=== PATIENT | male | born 1940 | race Caucasian/White ===

== ENCOUNTER 2017-12-26 16:46 | Emergency (ER) | payer MEDICARE, OTHER ==
--- NOTE | 2017-12-26 17:55 | CT ---
CT BRAIN WITHOUT CONTRAST 12/26/17 HISTORY: Injury. Trauma. COMPARISON: 2015. FINDINGS: No acute territorial infarct or hemorrhage. No midline shift or mass effect. Ventricular size and ext ra-axial CSF spaces are normal. The calvarium is intact. The paranasal sinuses and mastoids are clear. IMPRESSION: No acute intracranial abnormality. POS: SUSAN
--- NOTE | 2017-12-26 17:57 | CT ---
CT FACE WITHOUT CONTRAST: 12/26/17 HISTORY: Injury. Facial trauma. COMPARISON: None. FINDINGS: Age indeterminate bilateral nasal bone fractures. The medial orbital davies, lateral orbital davies, or bital floors, zygoma, zygomatic arches are all intact. Normal appearance of the temporomandibular johanne nts. Pterygoid plates are intact. Mandible is intact. The anterior nasal process of the maxilla is intact. Normal alignment of the upper cervical spine. There is a soft tissue contusion over the right cheek, infraorbital. IMPRESSION: Right cheek soft tissue contusion. No underlying fracture or malalignment. POS: SUSAN
[2017-12-26 18:41] LABS: INR-International Normal Ratio 2.2; PTT 36.5 SEC (22.9-36.1); Prothrombin Time 25.5 SEC (12.0-14.7)
== END 2017-12-26 19:20 | disposition home or self-care (01) ==
LOC: ERS 16:46
DX: S00.83XA Contusion of other part of head, initial encounter (principal); I10 Essential (primary) hypertension; E78.5 Hyperlipidemia, unspecified; F41.9 Anxiety disorder, unspecified; F03.90 Unspecified dementia, unspecified severity, without behavioral disturbance, psychotic disturbance, mood disturbance, and anxiety; W19.XXXA Unspecified fall, initial encounter
CPT/HCPCS: 36415; 70450; 70486

== ENCOUNTER 2019-04-29 09:25 | Day surgery (SDC) | payer MEDICARE, OTHER ==
[2019-04-28 13:09] VITALS: BMI 33.0
--- NOTE | 2019-04-29 10:13 | RAD ---
XR Abdomen 1 View/KUB History: Preop Comparison: CT Stone protocol April 2019 Findings: Similar appearance of the calcifications projecting over the left proximal ureter and left renal collecting system. No abnormal calcifications seen projecting over the right ureter. Punctate right renal calculus not well visualized. Moderate facet arthropathy lower lumbar spine. Moderate degenerative disease of the hips. Impression: No further migration of the left ureteral calculus.
[2019-04-29] MEDS ORDERED: Levofloxacin 500 mg/D5W 100 ml Premix Bag ONE (10:59)
[2019-04-29] MEDS ORDERED: Vancomycin HCl 1.5 GM in Sodium Chloride 0.9% 250 ML 300 ML IVPB SCH (11:15)
[2019-04-29] MEDS ORDERED: cefTRIAXone\\ROCEPHIN 2 GM in Sodium Chloride 0.9% 100 ML IVPB SCH (11:15)
[2019-04-29] MEDS ORDERED: Fentanyl 100 MCG/2 ML VIAL ONE (11:27)
[2019-04-29] MEDS ORDERED: Iothalamate Meglumine 60% 50 ML VIAL FS ONE (11:32)
[2019-04-29] MEDS ORDERED: SUGAMMADEX SODIUM 500 MG/5 ML VIAL ONE (12:36)
--- NOTE | 2019-04-29 14:12 | RAD ---
EXAM: XR IVP Retrograde PROVIDED CLINICAL HISTORY: Left flank pain. Recent CT scan examination demonstrates bilateral renal calculi proximal left ureter al calculus. COMPARISON: CT abdomen and pelvis on 04/27/2019 FINDINGS/IMPRESSION: Left retrograde urogram demonstrates a subtle filling defect at the expected location of the left pro ximal ureter with subsequent images demonstrating opacification of the left renal collecting system with evidence of mild left hydronephrosis. There is a rounded filling defect in the left renal pelvis after opacification of the left renal collecting system which may potentially represent the ureteral calculus which has migrated into the renal pelvis or a gas bubble. Subsequent imaging demons trates placement of a left ureteral stent. Right retrograde urogram was performed, and no definite filling defect is seen within the right renal collecting system or right ureter. No right hydronephrosis is present. Correlation with intraoperative findings is recommended. Fluoroscopy: Time-1 minute 27 seconds Dose-39.6 mGy
--- NOTE | 2019-04-29 16:42 | OP ---
DATE OF PROCEDURE: 04/29/2019 PREOPERATIVE DIAGNOSES: Left proximal ureteral stone and right distal ureteral stone. POSTOPERATIVE DIAGNOSES: Left proximal ureteral stone and right distal ureteral stone. PROCEDURES PERFORMED: Cysto, bilateral retrogrades, and bilateral stents. ANESTHESIA: General. EBL: Minimal. FINDINGS: There was a proximal left ureteral stone that was pushed back up in the renal pelvis. There was a distal right ureteral stone. There were some tiny bladder stones. Drains placed were 4.8 x 24 cm double-J stents without any strings attached to them. DESCRIPTION OF PROCEDURE: Obtained written and verbal consent from the patient after receiving IV Levaquin and vancomycin. He was taken to the operating suite. He was placed in supine position on the treatment table. PlexiPulses were placed in his lower extremities and turned on. He was given a general anesthetic and oral obturator intubation. He was placed in the dorsal lithotomy position and sterilely prepped and draped. Cystoscopy was performed with a 22-[place] sheath. This was well lubricated and passed under direct vision through the male urethra into the urinary bladder with aid of a video camera, monitor, and a 30-degree lens. The bladder was examined with the 30 and 70-degree lens. There were some tiny bladder stones. The left ureteral orifice was cannulated with a 5-[place] Pollack catheter. Using the C-arm, images were taken as we filled up the left ureter and upper collecting system with contrast. There was a proximal ureteral stone that we were able to push back up into the renal pelvis. A guidewire was then set up across this point and then a stent was placed over the guidewire and pushed it up and then placed with aid of a pusher, so its proximal end coiled in the renal pelvis and its distal end coiled in the bladder when the wires removed. The right side was then done in a similar manner. There was a very small most likely very small right distal ureteral stone that was easily passed through the guidewire and we did place a stent up on this side also same technique. At this point, the bladder was drained. The instruments were removed. He was taken out of dorsal lithotomy position, awakened, extubated, and taken by stretcher to recovery room. Job ID: [id number]
== END 2019-04-29 15:21 | disposition home or self-care (01) ==
LOC: SDC 09:25
PROVIDERS: ATTEND Urology
PROC: 0T788DZ Dilation of Bilateral Ureters with Intraluminal Device, Via Natural or Artificial Opening Endoscopic (ICD-10-PCS; principal; 2019-04-29)
DX: N20.1 Calculus of ureter (principal); N21.0 Calculus in bladder; G47.33 Obstructive sleep apnea (adult) (pediatric); I48.91 Unspecified atrial fibrillation; K21.9 Gastro-esophageal reflux disease without esophagitis; M19.90 Unspecified osteoarthritis, unspecified site; F32.9 Major depressive disorder, single episode, unspecified; I10 Essential (primary) hypertension; Z86.718 Personal history of other venous thrombosis and embolism; Z87.891 Personal history of nicotine dependence; Z79.899 Other long term (current) drug therapy; Z88.1 Allergy status to other antibiotic agents; Z88.5 Allergy status to narcotic agent; Z88.8 Allergy status to other drugs, medicaments and biological substances; Z99.89 Dependence on other enabling machines and devices
CPT/HCPCS: 52332; 74018; 74420; C1758; J1956; J3010; J3370; J7050

== ENCOUNTER 2019-05-05 06:51 | Outpatient (CLI) | payer MEDICARE, OTHER ==
[2019-05-05 14:43] LABS: Platelet Count 244 thou/uL (130-400)
[2019-05-05 15:07] LABS: INR-International Normal Ratio 1.1; Prothrombin Time 14.7 SEC (12.0-14.7)
[2019-05-05 15:08] LABS: PTT 31.6 SEC (22.9-36.1)
[2019-05-05 15:09] LABS: EPI 101 SEC (67-199)
--- NOTE | 2019-05-10 17:05 | EKG ---
Test Reason : Blood Pressure : / mmHG Vent. Rate : 070 BPM Atrial Rate : 070 BPM P-R Int : 172 ms QRS Dur : 108 ms QT Int : 452 ms P-R-T Axes : 069 -37 056 degrees QTc Int : 488 ms Normal sinus rhythm Left axis deviation Incomplete right bundle branch block Nonspecific T wave abnormality Prolonged QT Abnormal ECG When compared with ECG of 06-JAN-2016 01:54, Sinus rhythm has replaced Atrial fibrillation Vent. rate has decreased BY 35 BPM Incomplete right bundle branch block is now Present Criteria for Inferior infarct are no longer Present Confirmed by DAYANARA ALVARENGA (2) on 05/10/2019 5:05:18 PM Referred By: JESSE Confirmed By:DAYANARA ALVARENGA
== END 2019-05-05 06:52 | disposition home or self-care (01) ==
LOC: LABBT 06:51
PROVIDERS: ATTEND Urology
DX: Z01.818 Encounter for other preprocedural examination (principal); N20.1 Calculus of ureter
CPT/HCPCS: 85576; 85610; 85730; 93005; 93010

== ENCOUNTER 2019-05-06 06:38 | Day surgery (SDC) | payer MEDICARE, OTHER ==
[2019-05-05 13:16] VITALS: BMI 32.8
[2019-05-06] MEDS ORDERED: Fentanyl 100 MCG/2 ML VIAL ONE (07:17)
[2019-05-06] MEDS ORDERED: Iothalamate Meglumine 60% 50 ML VIAL FS ONE (09:01)
--- NOTE | 2019-05-06 12:25 | OP ---
DATE OF PROCEDURE: 05/06/2019 PREOPERATIVE DIAGNOSES: Left renal stone and right ureteral stone. POSTOPERATIVE DIAGNOSES: Left renal stone and right ureteral stone. PROCEDURES PERFORMED: Left extracorporeal shock wave lithotripsy and right extracorporeal shock wave lithotripsy. ANESTHETIC: General. ESTIMATED BLOOD LOSS: Not recorded. FINDINGS: He had a stone that was about a centimeter in size, it had been in the left proximal ureter. This had been placed up into the left renal pelvis when the stent was placed. This was treated with 2500 shocks at maximum level kV of 4 with a few 100 shocks at a kV 5. It did appear to fragment well, but we did not remove the stent. It was a much smaller stone, probably in the 3 or 4 mm range along the right distal stent, this was treated with a 1000 shocks at maximum kV level of 5. DESCRIPTION OF PROCEDURE: Obtained written and verbal consent from the patient, after documenting normal preop blood work, he was taken to operating suite. He was placed in the supine position on the treatment table. PlexiPulses were placed on his lower extremities and turned on. He was given a general anesthetic and an oral obturator intubation. The stone was placed in treatment focal point. He was coupled to the lithotripsy unit. This was a left renal stone that we treated first. ESWL was commenced at a low kV and a low rate. After couple 100 shocks, a 5-minute pause was given and then, we restarted the ESWL. So, we went up to level 4 and then the last 1000 shocks, he alternated between level 4 and level 5. After 2500 shocks, we went ahead and repositioned on the right side to treat the right distal ureteral stone. This was also coupled to the lithotripsy unit and shockwave therapy was commenced. It went up relatively quickly to level 5. No pause was given for this 1 and did appear to fragment well, so it stopped at a 1000 shocks. At this point, he was awakened, extubated, and taken by stretcher to the recovery room. Job ID: [id number]
== END 2019-05-06 14:02 | disposition home or self-care (01) ==
LOC: SDC 06:38
PROVIDERS: ATTEND Urology
PROC: 0TF4XZZ Fragmentation in Left Kidney Pelvis, External Approach (ICD-10-PCS; principal; 2019-05-06)
PROC: 0TF6XZZ Fragmentation in Right Ureter, External Approach (ICD-10-PCS; 2019-05-06)
DX: N20.2 Calculus of kidney with calculus of ureter (principal); G47.33 Obstructive sleep apnea (adult) (pediatric); I48.91 Unspecified atrial fibrillation; K21.9 Gastro-esophageal reflux disease without esophagitis; M19.90 Unspecified osteoarthritis, unspecified site; F32.9 Major depressive disorder, single episode, unspecified; N40.1 Benign prostatic hyperplasia with lower urinary tract symptoms; Z86.718 Personal history of other venous thrombosis and embolism; Z87.891 Personal history of nicotine dependence; Z79.01 Long term (current) use of anticoagulants; Z79.899 Other long term (current) drug therapy; Z88.1 Allergy status to other antibiotic agents; Z88.5 Allergy status to narcotic agent; Z88.8 Allergy status to other drugs, medicaments and biological substances; Z99.89 Dependence on other enabling machines and devices
CPT/HCPCS: J3010

== ENCOUNTER 2019-08-05 09:04 | Inpatient (IN) | payer MEDICARE, OTHER ==
--- NOTE | 2019-08-05 09:32 | RAD ---
XR Chest 1 View Portable HISTORY: Tachycardia and altered mental status. COMPARISON: 06/06/2019 study. FINDINGS: Heart size is enlarged with postop sternotomy change and aortic valve replacement. A loop r ecorder device is present over the left chest. The lungs are clear of infiltrates. No signs of failure. IMPRESSION: Cardiomegaly. No acute findings.
[2019-08-05 09:57] LABS: ALT (SGPT) 21 U/L (8-55); AST (SGOT) 15 U/L (5-34); Albumin 3.8 g/dL (3.4-4.8); Alkaline Phosphatase 84 U/L (40-110); Anion Gap 16 mmol/L (10-20); BUN (Urea Nitrogen) 23 mg/dL (8.4-25.7); Bilirubin, Total 0.9 mg/dL (0.2-1.2); CK (CPK) 30 U/L (30-200); Calc. Creatinine Clearance 0 mL/min (70-130); Calcium 8.7 mg/dL (7.8-10.44); Carbon Dioxide 20 mmol/L (23-31); Chloride 107 mmol/L (98-107); Estimated GFR-MDRD 66; Globulin 3.2 g/dL (2.4-3.5); Glucose 168 mg/dL (83-110); Lipase 13 U/L (8-78); Potassium 4.2 mmol/L (3.5-5.1); Sodium 139 mmol/L (136-145)
[2019-08-05 10:00] LABS: Bilirubin Negative (Negative); Blood, Urine Negative (Negative); Clarity Clear (Clear); Glucose, Urine (Dipstick) Normal (Negative); Leukocyte Negative Leu/uL (Negative); Nitrite Negative (Negative); Protein, Urine (Dipstick) Negative (Neg-Trace); Urobilinogen Normal mg/dL (Less than 2)
[2019-08-05 10:05] LABS: Hemoglobin 12.7 g/dL (14.0-18.0); Mean Corpuscular HGB CONC 32.7 g/dL (32.0-36.0); Mean Corpuscular Volume 91.8 fL (78.0-98.0); Mean Platelet Volume 8.1 fL (7.4-10.4); Platelet Count 170 thou/uL (130-400); RBC Distribution Width 16.7 % (11.5-14.5); Red Blood Cell (RBC) Count 4.23 mill/uL (4.70-6.10); White Blood Cell (WBC) Count 28.8 thou/uL (4.8-10.8)
[2019-08-05 10:07] LABS: Band 27 % (5-11); Lymphocytes 3 % (21-51); MDiff Complete? YES; Neutrophil 70 % (42-75)
--- NOTE | 2019-08-05 10:10 | CT ---
CT head noncontrast HISTORY: Altered mental status. COMPARISON: 12/26/2017. FINDINGS: There is no evidence of acute intracranial hemorrhage or infarct. Diffuse cortical atrophy and chronic ischemic small vessel disease are again demonstrated. There is no mass effect or shift of midline structures fluid layers within the dependent portion of each maxillary sinus. IMPRESSION: Chronic-type findings. No acute intracranial abnormalities are demonstrated. Bilateral maxillary sinusitis
[2019-08-05 10:31] LABS: INR-International Normal Ratio 1.2; PTT 28.9 SEC (22.9-36.1)
[2019-08-05] MEDS ORDERED: Senokot S 8.6-50 MG TAB PO PRN (11:29)
[2019-08-05] MEDS ORDERED: HumaLOG 300 UNITS/3 ML VIAL SC PRN ×2 (11:29)
[2019-08-05] MEDS ORDERED: Dextrose 5% in Water 1,000 ML IV PRN (11:29)
[2019-08-05] MEDS ORDERED: Dextrose 50% Abboject 50 ML SYRINGE SLOW IVP PRN (11:29)
[2019-08-05] MEDS ORDERED: Guaifenesin DM 100-10/5 ML UDCUP PO PRN (11:29)
[2019-08-05] MEDS ORDERED: Bisacodyl 10 MG SUPP PR PRN (11:29)
[2019-08-05] MEDS ORDERED: Ondansetron PF 4 MG/2 ML Vial IVP PRN (11:29)
[2019-08-05] MEDS ORDERED: Lorazepam 2 MG/ML VIAL ONE ×2 (12:06→12:10)
--- NOTE | 2019-08-05 12:18 | HP ---
HISTORY OF PRESENT ILLNESS: Please note majority of this history is obtained by talking to ER physician, Dr. Buck, the patient's at bedside as the patient is not oriented at present. He is currently a resident of [facility]. Apparently, the patient became more altered, was not himself this morning. in fact saw him last evening around 7:30 p.m. when he was at his baseline. He has been coughing for the last 3 weeks. She has not seen him expectorate any sputum. The patient initially was at rehab and later sent to [facility] on June 12. He has had a bad knee, especially the left side and has difficulty ambulating. He has been progressing well with physical therapy per . The patient has had ureteral stents placed with lithotripsy done by Dr. Caballero. This was done in April of this year. On arrival here, the patient had a temperature of 99 degrees. He is also breathing 32 times a minute. 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 Caballero, appendectomy, umbilical hernia repair, obesity, and right knee replacement. CURRENT MEDICATIONS: Per [facility] records, the patient is on; 1. Alprazolam 0.25 mg p.o. q.12 hourly p.r.n. for anxiety. 2. Atorvastatin 80 mg p.o. at bedtime. 3. Citalopram 40 mg p.o. daily. 4. Clonidine 0.1 mg p.o. q.6 hourly p.r.n. 5. Coumadin 5 mg daily. 6. Finasteride 5 mg p.o. daily. 7. Namenda 5 mg p.o. daily. 8. MiraLAX 17 g p.o. daily. 9. Protonix 20 mg daily. 10. Torsemide 10 mg daily. ALLERGIES: TO HYDROCODONE, TRAMADOL, KEFLEX, AND LEVSIN. PERSONAL HISTORY: Quit dipping tobacco a long ago more than 30 years back. Does not abuse alcohol or drugs. He is currently a resident of [facility] in [place]. The patient is to his for more than 50 years now. FAMILY HISTORY: Father at the age of 82, he has had history of colon cancer. Mother in her 90s, she had pneumonia at the end. CODE STATUS: Do not attempt to resuscitate, this was discussed with the patient 's at bedside. REVIEW OF SYSTEMS: Cannot be obtained as the patient is not oriented now. PHYSICAL EXAMINATION: GENERAL: The patient is an 79-year-old male, who is currently not oriented, is in mild respiratory distress. VITAL SIGNS: Blood pressure 164/76, pulse 110 per minute, respiratory rate 32 per minute, temperature 99.7 degrees Fahrenheit, and saturating 98% on room air. NECK: Supple. No elevated JVD. HEENT: Eyes, extraocular muscles intact. Pupils reacting to light. Oral cavity, mucous membranes are dry. No exudates or congestion. CARDIOVASCULAR SYSTEM: S1 and S2 heard. Tachycardic. No murmur. RESPIRATORY SYSTEM: Air entry 1+ bilateral. Scattered rhonchi plus bilateral. ABDOMEN: Distended. mentions that he always has had a big belly. Bowel sounds heard. No rigidity or guarding. EXTREMITIES: Left lower extremity, there is edema. He has mild 15 to 20 degrees flexion contracture on the left lower extremity. No edema on the right lower extremity. No calf tenderness. VASCULAR SYSTEM: Peripheral pulses 1+ bilateral. No ischemic ulcerations or gangrene. CENTRAL NERVOUS SYSTEM: The patient is not oriented at present. He gives a blank stare at you. No gross focal neurologic signs seen. PSYCHIATRIC: Cannot be assessed as patient is not oriented at present. LABORATORY DATA: CT brain showed no acute intracranial abnormalities. There is bilateral maxillary sinusitis seen. Diffuse cortical atrophy and chronic ischemic small vessel diseases seen on CT brain. Chest x-ray done shows cardiomegaly. No acute findings per Radiology. White count of 28.8, H and H 12 and 38, platelet count 170, MCV is 91 with 70% neutrophils, and 27% bands. PT/INR 15 and 1.2 and PTT 28. Electrolytes are stable. Bicarb is 20, BUN 23, creatinine 1.0, and serum glucose 168. Lactic acid 3.1. AST, ALT, alkaline phosphatase within normal limits. Albumin 3.8, ammonia levels are 16. Troponin I x1 is negative. BNP is 172. Lipase is 13. TSH 1.40. EKG done shows sinus tach at `beats per minute. There is RBBB seen. CLINICAL IMPRESSION AND PLAN: The patient will be admitted to medical floor for sepsis with unclear etiology, likely lungs. He will be on broad-spectrum antibiotics including Zosyn, Levaquin, and vancomycin. Blood, sputum, and urine cultures will be obtained. He has had bilateral stent with urologic procedures including lithotripsy done in April. It is unclear if his stent is still present. We will obtain a CT stone protocol and a CT chest as well. Left lower lobe is not very clear on the portable x-ray. The patient has had a cough from last 3 weeks or so with expectoration of yellow green sputum per . He will be on albuterol nebulizer q.6 hourly. Normal saline at 80 mL per hour. We will also place him on a short course of steroids. We will continue Lipitor, citalopram, Proscar, lansoprazole, and Coumadin orally when he is able to swallow. For now, he will be n.p.o. except medications in view of aspiration risk. His overall prognosis is guarded. is clearly aware of the current situation. Addendum: patient declined further in ER after I examined him and had to be intubated per . I have d/w . Will follow up again today. Job ID: [id number] [facility]
[2019-08-05] MEDS ORDERED: Rocuronium Bromide 10 MG/ML (10ML VIAL) ONE (12:30)
[2019-08-05] MEDS ORDERED: fentaNYL Citrate/PF 2,000 MCG in Sodium Chloride 0.9% 60 ML IV SCH ×2 (12:41→13:43)
[2019-08-05] MEDS ORDERED: Albuterol Sulfate 1.25 MG/3 ML NEB NEB SCH (13:00)
--- NOTE | 2019-08-05 13:09 | CT ---
CT CHEST AND ABDOMEN AND PELVIS WITH CONTRAST: HISTORY: Pneumonia. Sepsis. Possible obstructive uropathy. COMPARISON: CT abdomen and pelvis performed on 04/27/2019. FINDINGS: CHEST: The lungs are clear of any infiltrative process. There is respiratory motion on this exam. Min imal subsegmental atelectatic changes are present. There is no significant mediastinal or hilar adenopathy. No significant axillary adenopathy noted. ABDOMEN: The liver, spleen and pancreas regions are all unremarkable. The gallbladder has been remove d. The right and left adrenal glands are normal. The right and left kidneys are normal in size. Bilatera l renal calculi are seen with a punctate lower pole right renal calculus and several left renal calcu li, the largest of which is approximately 10 mm in size, in the lower pole region. There is no obstru ction and no ureteral calculi. No significant periaortic or mesenteric adenopathy. No free fluid seen within the abdomen. PELVIS: Moderate amount of stool in the rectosigmoid region. No inflammatory process noted. No adenop athy or mass. The appendix region is unremarkable. The appendix is not definitively identified. The b ladder is mildly distended. The prostate does not appear enlarged. IMPRESSION: 1. No acute findings of the chest, abdomen or pelvis. 2. Nonobstructing renal calculi. 3. Moderate amount of stool present within the rectosigmoid colon. POS: OFF
[2019-08-05 13:10] LABS: Actual Bicarbonate (HCO3a) 21.2 mEq/L (22-28); Analyzer IN Cardio ER; Base Excess (BEa) -6.3 mEq/L (-2.0 to +3.0); Calcium, Ionized 1.13 mmol/L (1.12-1.30); Carboxyhemoglobin (COHb) 0.6 gm% (0.0-3.0); Hemoglobin (Hb) 12.9 g/dL (14.0-18.0); O2 Tension (PaO2) 83.6 mmHg (> 60.0); Potassium - ABG Lab 4.19 mmol/L (3.70-5.30)
[2019-08-05 13:13] LABS: Puncture Site L.R.; pH, Arterial 7.25 (7.35-7.45)
[2019-08-05] MEDS ORDERED: CCU Electrolyte Replacement 1 EACH FS ONE (13:28)
[2019-08-05] MEDS ORDERED: Ventilator Sedation Protocol 1 EACH FS ONE (13:28)
[2019-08-05] MEDS ORDERED: Lorazepam 2 MG/ML VIAL SLOW IVP PRN ×2 (13:31→13:43)
[2019-08-05] MEDS ORDERED: Potassium Phosphate 12 MMOL in Sodium Chloride 0.9% 250 ML 250 ML IV PRN (13:43)
[2019-08-05] MEDS ORDERED: Magnesium 2 GM/50 ML 2 GM in Premix Bag 1 BAG IVPB PRN (13:43)
[2019-08-05] MEDS ORDERED: CCU ELECTROLYTE REPLACEMENT PROTOCOL FS PRN (13:43)
[2019-08-05] MEDS ORDERED: Potassium Phosphate 15 MMOL in Sodium Chloride 0.9% 250 ML 250 ML IV PRN (13:43)
[2019-08-05] MEDS ORDERED: PHOS-NAK 1 PKT PACK PO PRN ×2 (13:43)
[2019-08-05] MEDS ORDERED: Fentanyl BOLUS 250 ML IVPB PRN (13:43)
[2019-08-05] MEDS ORDERED: Potassium Chloride 40 MEQ in Premix Bag 1 BAG IVPB PRN (13:43)
[2019-08-05] MEDS ORDERED: Potassium Chloride 40 MEQ in Sodium Chloride 0.9% 250 ML 250 ML IVPB PRN (13:43)
[2019-08-05] MEDS ORDERED: Magnesium Oxide 400 MG TAB PO PRN ×2 (13:43)
[2019-08-05] MEDS ORDERED: Morphine 2 MG/ML SYRINGE SLOW IVP PRN (13:43)
[2019-08-05] MEDS ORDERED: Potassium Chloride 20 MEQ TAB PO PRN (13:43)
[2019-08-05] MEDS ORDERED: Propofol BOLUS 1,000 MG/100 ML VIAL IV PRN (13:43)
[2019-08-05] MEDS ORDERED: Potassium Phosphate 9 MMOL in Sodium Chloride 0.9% 100 ML IVPB PRN (13:43)
[2019-08-05] MEDS ORDERED: DISCONTINUE PREVIOUS NARCOTIC PAIN MEDICATIONS AND BENZODIAZEPINES FS SCH (13:43)
[2019-08-05] MEDS ORDERED: Fleet Enema 133 ML BOT PR SCH (13:45)
--- NOTE | 2019-08-05 13:56 | RAD ---
PORTABLE CHEST: HISTORY: Post intubation. COMPARISON: Exam done earlier from the same day. FINDINGS: Endotracheal tube and NG tube has been placed, which appear to be in good position. There are atelect atic changes in the right lung base and left lower lobe atelectatic change, which appears somewhat wo rsened as compared to the prior exam. IMPRESSION: 1. Cardiomegaly with postoperative sternotomy change and valve replacement. 2. Bibasilar atelectatic lung changes. Changes in the left base slightly worsened in appearance as co mpared to the previous chest x-ray. POS: OFF
[2019-08-05 14:19] LABS: Amphetamine Not Detected (NotDetected); Barbiturates Screen Not Detected (NotDetected); Benzodiazepine Screen Not Detected (NotDetected); Cocaine Metabolite Screen Not Detected (NotDetected); Medtox Control Line Valid? VALID (VALID); Medtox Reader # READER 1; Methadone Not Detected (NotDetected); Methamphetamine Not Detected (NotDetected); Opiate Screen Not Detected (NotDetected); Oxycodone Screen Not Detected (NotDetected); Phencyclidine (PCP) Not Detected (NotDetected); THC/Cannabinoid Screen Not Detected (NotDetected); Tricyclic Screen Not Detected (NotDetected)
[2019-08-05 14:23] LABS: Acetaminophen Less than 6.0 mcg/mL (10.0-30.0); Alcohol Less than 10 mg/dL (Less than 10); Salicylate Less than 8.0 mg/dL (15.0-30.0)
--- NOTE | 2019-08-05 14:32 | CON ---
DATE OF CONSULTATION: 08/05/2019 This is 35 minutes critical care time. CONSULTING PHYSICIAN: Brett Batista MD REASON FOR CONSULTATION: Acute respiratory failure requiring mechanical ventilation. HISTORY OF PRESENT ILLNESS: The patient is an 79-year-old male who was currently residing in the [facility] for rehabilitation of a knee. His saw him yesterday, had dinner with him and he was apparently doing well. This morning, he became more lethargic. He had been complaining of some cough. He was sent to the ER. He had what was characterized as a seizure type spell. He was intubated by the emergency room physician. There was some understanding or misunderstanding if the patient was DNR. I spoke to the family. The children say he was not DNR. The says that he could be DNR, but the paperwork is at home. In any event, they all agreed to have him intubated on a short-term basis. PAST MEDICAL HISTORY: 1. Coronary artery disease. 2. Deep venous thrombosis. 3. Paroxysmal atrial fibrillation. 4. Dementia. 5. Chronic kidney disease. 6. Hyperlipidemia. 7. Prostatic hypertrophy. PAST SURGICAL HISTORY: 1. Aortic valve replacement. 2. Lithotripsy. 3. Bilateral ureteral stent placement. 4. Appendectomy. 5. Umbilical hernia repair. 6. Right knee replacement. MEDICATIONS: Prior to admission, 1. Alprazolam 0.25 mg b.i.d. for anxiety as needed. 2. Atorvastatin 80 mg nightly. 3. Citalopram 40 mg daily. 4. Clonidine 0.1 mg q.6 hours as needed. 5. Coumadin 5 mg daily. 6. Finasteride 5 mg daily. 7. Namenda 5 mg daily. 8. MiraLAX 17 g daily. 9. Protonix 20 mg daily. 10. Torsemide 10 mg daily. ALLERGIES: HYDROCODONE, TRAMADOL, KEFLEX, AND LEVSIN. SOCIAL HISTORY: He used smokeless tobacco up until about 30 years ago. Does not smoke. Does not consume alcohol. FAMILY MEDICAL HISTORY: Remarkable for colon cancer. REVIEW OF SYSTEMS: Cannot be obtained as the patient is currently intubated and sedated. PHYSICAL EXAMINATION: VITAL SIGNS: Temperature is 99.7, pulse 110, blood pressure 140/85, respiratory rate 32, O2 sats 98% on mechanical ventilation. This patient is currently intubated, sedated, and paralyzed. HEENT: Pupils are reactive. Sclerae anicteric. Oropharynx is clear. NECK: No adenopathy or JVD. LUNGS: Clear to auscultation without wheezing or rhonchi. CARDIOVASCULAR: S1-S2 regular without audible murmur. ABDOMEN: Soft, obese, nontender, and nondistended. EXTREMITIES: No clubbing or cyanosis. He has a scar over his right knee. LABORATORY DATA: Head CT was negative. CT of the abdomen, chest and pelvis were essentially negative. A repeat chest x-ray showed some infiltrative changes in the left base, which was worse than before. His influenza test is negative. White blood cell count 28.8, hematocrit 38.8, and platelet count 170, with 70% neutrophils, 27% bands. PH 7.25, pCO2 of 50, PO2 of 83 on SIMV rate 12, tidal volume 500, PEEP 5, pressure support 10, FiO2 of 50%. Sodium 139, potassium 4.2, chloride 107, CO2 of 20, BUN 23, creatinine 1.1, glucose 168. BNP 172. Urinalysis was negative. ASSESSMENT: 1. Possible seizure episode. 2. Suspect he is septic and I would guess this is probably from a left lower lobe pneumonia. 3. Previous history of deep venous thrombosis. 4. Prosthetic aortic valve. 5. The patient currently under anticoagulated. PLAN: 1. Agree with empiric antibiotics including Levaquin, Zosyn, and vancomycin. 2. I will adjust his mechanical ventilation settings. 3. Try to clarify code status with the family. They seem very divided on this, so I will give this some time to sort this out. Hopefully, he can be extubated in a day or two. 4. Neurology has been consulted for seizures. Job ID: [id number]
[2019-08-05] MEDS ORDERED: Propofol 1,000 MG/100 ML VIAL IV ONE (14:33)
[2019-08-05] MEDS ORDERED: Iopamidol 370 76% 100 ML VIAL ONE (14:35)
[2019-08-05] MEDS: Sodium Chloride 0.9% 1,000 ML IV SCH (14:43)
[2019-08-05] MEDS: Piperacillin/Tazobactam 3.375 GM in Sodium Chloride 0.9% 100 ML IVPB SCH ×2 (14:43→22:30)
[2019-08-05 14:54] VITALS: BMI 29.1
[2019-08-05] MEDS ORDERED: Benzonatate 100 MG CAP PO SCH (15:00)
[2019-08-05 15:09] LABS: Lactic Acid 2.5 mmol/L (0.5-2.2)
[2019-08-05] MEDS: Albuterol Sulfate 1.25 MG/3 ML NEB NEB SCH ×3 (15:45→22:08)
[2019-08-05] MEDS: Warfarin Sodium 5 MG TAB PO SCH (17:24)
[2019-08-05] MEDS: Finasteride 5 MG TAB PO SCH (20:24)
[2019-08-05] MEDS: Citalopram 20 MG TAB PO SCH (20:24)
[2019-08-05] MEDS: Atorvastatin Calcium 40 MG TAB PO SCH (20:24)
[2019-08-05] MEDS: Acetaminophen 325 MG TAB PO PRN (20:25)
[2019-08-05] MEDS ORDERED: guaiFENesin ER 600 MG TAB PO SCH (21:00)
[2019-08-05] MEDS ORDERED: Vancomycin HCl 1 GM in Sodium Chloride 0.9% 250 ML 300 ML IVPB SCH (21:00)
[2019-08-05] MEDS: Propofol 1,000 MG/100 ML VIAL IV PRN (22:40)
[2019-08-06] MEDS: Albuterol Sulfate 1.25 MG/3 ML NEB NEB SCH ×6 (03:13→22:16)
[2019-08-06 03:47] LABS: INR-International Normal Ratio 1.5
[2019-08-06 03:52] LABS: Anion Gap 13 mmol/L (10-20); BUN (Urea Nitrogen) 20 mg/dL (8.4-25.7); Calc. Creatinine Clearance 78 mL/min (70-130); Calcium 8.1 mg/dL (7.8-10.44); Carbon Dioxide 22 mmol/L (23-31); Chloride 110 mmol/L (98-107); Estimated GFR-MDRD 73; Glucose 153 mg/dL (83-110); Potassium 4.4 mmol/L (3.5-5.1); Sodium 141 mmol/L (136-145)
[2019-08-06 04:23] LABS: Band 28 % (5-11); Hemoglobin 10.7 g/dL (14.0-18.0); Lymphocytes 4 % (21-51); MDiff Complete? YES; Mean Corpuscular HGB CONC 32.3 g/dL (32.0-36.0); Mean Corpuscular Hemoglobin 29.8 pg (27.0-31.0); Mean Corpuscular Volume 92.3 fL (78.0-98.0); Mean Platelet Volume 6.7 fL (7.4-10.4); Neutrophil 68 % (42-75); Platelet Count 124 thou/uL (130-400); RBC Distribution Width 16.6 % (11.5-14.5); Red Blood Cell (RBC) Count 3.58 mill/uL (4.70-6.10); White Blood Cell (WBC) Count 20.1 thou/uL (4.8-10.8)
[2019-08-06] MEDS: Piperacillin/Tazobactam 3.375 GM in Sodium Chloride 0.9% 100 ML IVPB SCH ×3 (05:52→21:57)
[2019-08-06] MEDS: Propofol 1,000 MG/100 ML VIAL IV PRN (06:55)
[2019-08-06 06:58] LABS: Actual Bicarbonate (HCO3a) 20.4 mEq/L (22-28); Base Excess (BEa) -3.6 mEq/L (-2.0 to +3.0); CO2 Tension 33.5 mmHg (35.0-45.0); Calcium, Ionized 1.16 mmol/L (1.12-1.30); Carboxyhemoglobin (COHb) 1.1 gm% (0.0-3.0); Hemoglobin (Hb) 12.8 g/dL (14.0-18.0); O2 Tension (PaO2) 73.2 mmHg (> 60.0); Potassium - ABG Lab 4.18 mmol/L (3.70-5.30)
[2019-08-06 07:02] LABS: Puncture Site RR
[2019-08-06 07:03] LABS: ALV-art Gradient 170.125 (0-20)
--- NOTE | 2019-08-06 08:43 | RAD ---
PORTABLE CHEST: Date: 08/06/19 PROVIDED CLINICAL HISTORY: Pneumonia. FINDINGS: Comparison with 08/05/19. Cardiac and mediastinal silhouette unchanged in appearance. Median sternotomy changes and prosthetic cardiac valve are again seen. ET tube and enteric catheter are again noted in similar positions. Pers istent left basilar pleural and/or parenchymal opacity. No evidence for pneumothorax. IMPRESSION: Overall stable radiographic appearance of the chest. POS: OFF
[2019-08-06] MEDS: Sodium Chloride 0.9% 1,000 ML IV SCH ×3 (08:57→13:00)
[2019-08-06] MEDS: Levofloxacin 750 mg/D5W 500 MG in Premix Bag 1 BAG IVPB SCH (08:58)
[2019-08-06] MEDS ORDERED: FLU VACC TS2019-20(65YR UP)/PF 180 MCG/0.5 ML SYRINGE IM ONE (09:00)
[2019-08-06] MEDS: Polyethylene Glycol 3350 17 GM Packet PO SCH (09:04)
[2019-08-06] MEDS ORDERED: Vancomycin HCl 1.75 GM in Sodium Chloride 0.9% 500 ML IVPB SCH (10:00)
--- NOTE | 2019-08-06 13:31 | PDOC.HOSPP ---
- Subjective Encounter Date: 08/06/19 Encounter Time: 12:20 Subjective: on vent, awakens easily , daughter and son in law at bedside - Objective Vital Signs & Weight: Vital Signs (12 hours) Temp Pulse Resp BP Pulse Ox 08/06/19 12:00 99.4 F 19 08/06/19 10:41 96 138/70 08/06/19 10:39 97 16 98 08/06/19 10:00 23 H 08/06/19 08:00 18 08/06/19 07:54 98 08/06/19 07:00 99.2 F 08/06/19 06:28 83 110/65 98 08/06/19 06:26 84 16 98 08/06/19 06:00 18 08/06/19 04:00 99.6 F 18 08/06/19 03:13 82 18 97 08/06/19 02:00 18 Weight Admit Weight 203 lb Weight 203 lb 4.259 oz Most Recent Monitor Data Heart Rate from ECG 96 NIBP 138/76 NIBP BP-Mean 96 Respiration from ECG 19 SpO2 100 I&O: 08/05/19 08/06/19 08/07/19 06:59 06:59 06:59 Intake Total 1641 45 Output Total 2360 405 Balance -986 -329 Result Diagrams: 08/06/19 03:18 08/06/19 03:18 Additional Labs: Accuchecks 08/06/19 08/05/19 12:10 16:42 POC Glucose 177 H 146 H Hospitalist ROS - Medication Medications: Active Medications Generic Name Dose Route Start Last Admin Trade Name Freq PRN Reason Stop Dose Admin Acetaminophen 650 mg 08/05/19 11:29 08/05/19 20:25 Tylenol PO 650 mg Q4H PRN Administration Headache/Fever/Mild Pain (1-3) Albuterol Sulfate 1.25 mg 08/05/19 14:30 08/06/19 10:39 Albuterol Sulfate NEB 1.25 mg [id number] MARIA VICTORIA Administration Atorvastatin Calcium 40 mg 08/05/19 21:00 08/05/19 20:24 Lipitor PO 40 mg HS MARIA VICTORIA Administration Citalopram Hydrobromide 40 mg 08/05/19 21:00 08/05/19 20:24 Celexa PO 40 mg HS MARIA VICTORIA Administration Finasteride 5 mg 08/05/19 21:00 08/05/19 20:24 Proscar PO 5 mg HS MARIA VICTORIA Administration Levofloxacin 500 mg/ Device 100 mls @ 100 mls/hr 08/06/19 10:00 08/06/19 08: 58 IVPB 100 mls 1000 MARIA VICTORIA Administration Sodium Chloride 1,000 mls @ 80 mls/hr 08/05/19 11:30 08/06/19 13:00 Normal Saline 0.9% IV Not Given .[id number] MARIA VICTORIA Piperacillin Sod/Tazobactam 100 mls @ 200 mls/hr 08/05/19 14:00 08/06/19 05: 52 Sod 3.375 gm/ Sodium Chloride IVPB 100 mls Q8HR MARIA VICTORIA Administration Vancomycin HCl 1.75 gm/ Sodium 500 mls @ 250 mls/hr 08/06/19 10:00 08/06/19 10:21 Chloride IVPB 500 mls 1000 MARIA VICTORIA Administration Insulin Human Lispro 0 units 08/05/19 11:29 08/06/19 06:09 Humalog SC 2 unit .MODERATE SLIDING SC PRN Administration Moderate Correctional Scale Memantine 5 mg 08/06/19 09:00 08/06/19 08:58 Namenda PO 5 mg DAILY MARIA VICTORIA Administration Pantoprazole Sodium 40 mg 08/06/19 09:00 08/06/19 08:57 Protonix PO 40 mg DAILY MARIA VICTORIA Administration Polyethylene Glycol 17 gm 08/06/19 09:00 08/06/19 09:04 Miralax PO 17 gm DAILY MARIA VICTORIA Administration Propofol 1,000 mg 08/05/19 13:43 08/06/19 06:55 Diprivan IV 09/04/19 13:43 1,000 mg INF PRN Administration TO ACHIEVE GOAL RASS Protocol Warfarin Sodium 5 mg 08/05/19 17:00 08/05/19 17:24 Coumadin PO 5 mg 1700 MARIA VICTORIA Administration - Exam Eye: PERRL, anicteric sclera ENT: no oropharyngeal lesions, dry oral mucosa Neck: supple, no JVD Heart: RRR, no murmur Respiratory: no wheezes, no rales, rhonchi Gastrointestinal: soft, non-tender, non-distended, normal bowel sounds Extremities: no cyanosis, 1+ LE edema Neurological: cranial nerve grossly intact, no focal deficits Hosp A/P (1) Sepsis Code(s): A41.9 - SEPSIS, UNSPECIFIED ORGANISM Status: Acute Qualifiers: Sepsis type: Streptococcus, unspecified Sepsis acute organ dysfunction status: with acute organ dysfunction Severe sepsis acute organ dysfunction type: acute respiratory failure (2) Acute respiratory failure with hypoxia Code(s): J96.01 - ACUTE RESPIRATORY FAILURE WITH HYPOXIA Status: Acute (3) Bacteremia Code(s): R78.81 - BACTEREMIA Status: Acute (4) PNA (pneumonia) Code(s): J18.9 - PNEUMONIA, UNSPECIFIED ORGANISM Status: Acute Qualifiers: Pneumonia type: due to group B Streptococcus Laterality: left Lung location: lower lobe of lung Qualified Code(s): J15.3 - Pneumonia due to streptococcus, group B (5) Physical deconditioning Code(s): R53.81 - OTHER MALAISE Status: Acute (6) H/O deep venous thrombosis Code(s): Z86.718 - PERSONAL HISTORY OF OTHER VENOUS THROMBOSIS AND EMBOLISM Status: Chronic (7) CAD (coronary artery disease) Code(s): I25.10 - ATHSCL HEART DISEASE OF [place] CORONARY ARTERY W/O ANG PCTRS Status: Chronic Qualifiers: Coronary Disease-Associated Artery/Lesion type: [place] artery [place] vs. transplanted heart: [place] heart Associated angina: without angina Qualified Code(s): I25.10 - Atherosclerotic heart disease of [place] coronary artery without angina pectoris (8) H/O aortic valve replacement Code(s): Z95.2 - PRESENCE OF PROSTHETIC HEART VALVE Status: Chronic Plan: bioprosthetic 23 magna (9) Hypertension Code(s): I10 - ESSENTIAL (PRIMARY) HYPERTENSION Status: Chronic Qualifiers: Hypertension type: essential hypertension Qualified Code(s): I10 - Essential (primary) hypertension - Plan is on vanc, zosyn and levaquin nebs, weaning per pulm adv continue coumadin for h/o dvt d/w , daughter and son in law at bedside, they are all in agreement for DNAR , to continue and wean him off vent as tolerated await full culture sensitivities, 2/2 blood are growing gm +ve cocci in pairs prognosis guarded has poor functional status MRI can be done when he is extubated if its ok with neurology
[2019-08-06] MEDS: Warfarin Sodium 5 MG TAB PO SCH (16:48)
--- NOTE | 2019-08-06 18:36 | PRG ---
DATE OF SERVICE: 08/06/2019 SUBJECTIVE: Luis Armando Gee remains mechanically ventilated. I am told by his nurse that the family is all in agreement that he should be extubated as he never wanted this in the first place. Since he is intubated for seizure, it is likely that he will not once he is extubated at least for some time. OBJECTIVE: VITAL SIGNS: Blood pressure 136/71, heart rate in the 90s, and respiratory rates in the 20s. LUNGS: Clear. HEART: Regular rhythm. ABDOMEN: Soft. EXTREMITIES: Without edema. IMAGING: Chest x-ray is hazy at the left base. IMPRESSION: 1. Status post intubation for seizure in the emergency department. 2. Do not resuscitate status. He can be extubated when family is all in agreement, at that time is appropriate. We will sign off. Job ID: [id number]
--- NOTE | 2019-08-06 18:42 | CON ---
DATE OF TELEMEDICINE CONSULTATION: 08/06/2019 CHIEF COMPLAINT: Possible seizure. HISTORY OF PRESENT ILLNESS: On or yesterday morning, the patient was unable to talk, he was babbling, then he had a low-grade temperature and then went on to have some seizures. He has no prior history of seizures, no prior history of CVA. Last month due to knee problems, he has been admitted to [facility] for therapy. He has not had a surgery for his left knee. He has poor reaction to anesthesia and pain medications cause hallucinations so they have not planned any surgery for his left knee. PREVIOUS MEDICAL HISTORY: Deep vein thrombosis, atrial fibrillation, aortic valve replacement surgery, and knee surgery. FAMILY HISTORY: His older brother at 92 years of age. PAST SURGICAL HISTORY: The patient's previous surgical history as noted, aortic valve replacement seems to be more of a porcine valve than a metallic valve replacement. REVIEW OF SYSTEMS: Unable to obtain. SOCIAL HISTORY: He is currently in a [facility] for physical therapy purposes only. MEDICATIONS: Noted per chart. ALLERGIES: HE IS ALLERGIES TO KEFLEX HYDROCODONE, HYOSCYAMINE. LABORATORY DATA: His current labs; white count is 20.1, hemoglobin 10.7, hematocrit 33.1, platelet count 124. Chemistry; sodium 141, potassium 4.4, chloride 110, bicarb 22, BUN 20, creatinine 0.99, glucose 153, lactic acid 2.5, ammonia 16. IMAGING STUDIES: MRI is still pending. CT of the head did not show any acute lesions. He has chronic microvascular changes and some atrophy. REVIEW OF SYSTEMS: Unobtainable. PHYSICAL EXAMINATION: GENERAL: I saw this patient this morning and at that time, his blood pressure was 146/71, pulse was 96, respiratory rate 25. He was on O2 and he was intubated. CHEST: Clear vesicular breathing. CARDIOVASCULAR: S1, S2 heard. No murmurs. ABDOMEN: Soft. NEUROLOGICAL: The patient is unresponsive, but does move his lower extremities to pain, no response in upper extremities. Pupils are 1 mm, reactive to light. IMPRESSION AND PLAN: The patient is an 79-year-old man with seizures. He is currently on propofol and fentanyl. He has had no seizures in the past, but had sudden onset of difficulty with speech followed by a seizure, whether this is in the setting of a urinary infection needs to be seen. At this time if possible, we will obtain an MRI of the brain to see if we can find any acute stroke and the patient is on antibiotics for sepsis, it is thought he might have some pneumonia as well in the setting. I will wait for the MRI to be done. We will see the patient again tomorrow. I will wait on starting anti-seizure medicines because this is the first seizure. Job ID: [id number] MTDD
[2019-08-06] MEDS: Acetaminophen 650 MG Suppository PR PRN (21:58)
[2019-08-06] MEDS: Citalopram 20 MG TAB PO SCH (21:59)
[2019-08-06] MEDS: Atorvastatin Calcium 40 MG TAB PO SCH (21:59)
[2019-08-06] MEDS: Finasteride 5 MG TAB PO SCH (21:59)
[2019-08-06] MEDS ORDERED: Morphine 2 MG/ML SYRINGE SLOW IVP SCH (22:45)
[2019-08-07] MEDS: Sodium Chloride 0.9% 1,000 ML IV SCH ×3 (01:37→21:17)
[2019-08-07] MEDS: Acetaminophen 650 MG Suppository PR PRN ×2 (01:46→08:30)
[2019-08-07] MEDS: Albuterol Sulfate 1.25 MG/3 ML NEB NEB SCH ×6 (02:18→23:18)
[2019-08-07 04:09] LABS: INR-International Normal Ratio 1.6; Prothrombin Time 18.5 SEC (12.0-14.7)
[2019-08-07 04:26] LABS: Anion Gap 10 mmol/L (10-20); BUN (Urea Nitrogen) 17 mg/dL (8.4-25.7); Calc. Creatinine Clearance 96 mL/min (70-130); Calcium 8.3 mg/dL (7.8-10.44); Carbon Dioxide 22 mmol/L (23-31); Chloride 114 mmol/L (98-107); Estimated GFR-MDRD Greater than 90; Glucose 133 mg/dL (83-110); Potassium 3.9 mmol/L (3.5-5.1); Sodium 142 mmol/L (136-145)
[2019-08-07 04:55] LABS: Band 4 % (5-11); Hemoglobin 9.9 g/dL (14.0-18.0); Hypochromia SLIGHT = 6-15 cells (100X) (0-5/hpf); Lymphocytes 2 % (21-51); MDiff Complete? YES; Mean Corpuscular HGB CONC 32.9 g/dL (32.0-36.0); Mean Corpuscular Hemoglobin 30.4 pg (27.0-31.0); Mean Corpuscular Volume 92.4 fL (78.0-98.0); Mean Platelet Volume 6.9 fL (7.4-10.4); Monocytes 6 % (0-10); Neutrophil 88 % (42-75); Platelet Count 130 thou/uL (130-400); Platelet Morphology Comment Appears Adequate; RBC Distribution Width 16.2 % (11.5-14.5); Red Blood Cell (RBC) Count 3.24 mill/uL (4.70-6.10); White Blood Cell (WBC) Count 15.8 thou/uL (4.8-10.8)
[2019-08-07] MEDS: Piperacillin/Tazobactam 3.375 GM in Sodium Chloride 0.9% 100 ML IVPB SCH ×3 (06:34→21:11)
[2019-08-07] MEDS: Polyethylene Glycol 3350 17 GM Packet PO SCH (08:31)
--- NOTE | 2019-08-07 09:12 | RAD ---
CHEST ONE VIEW: INDICATIONS: Pneumonia. COMPARISON: Prior exam dated 08/06/2019 FINDINGS: IMPRESSION: The left sided pleural parenchymal opacity persists. Tiny right pleural effusion is similar appearing . Mild cardiomegaly with mild pulmonary vascular congestion persists. Loop recorder, midline sternoto my changes and aortic valvular prosthesis are stable appearing. Chronic osseous changes are stable ap pearing. Small subcortical lucency involving the right proximal humerus is stable appearing. IMPRESSION: Stable examination of the chest. POS: TPC
[2019-08-07] MEDS: Levofloxacin 750 mg/D5W 500 MG in Premix Bag 1 BAG IVPB SCH (09:38)
--- NOTE | 2019-08-07 09:51 | PRG ---
DATE OF SERVICE: 08/07/2019 SUBJECTIVE: The patient is awake, alert, and is cooperative with family. OBJECTIVE: VITAL SIGNS: His temperature is 98.4, pulse 94, blood pressure 134/99, and O2 saturation 92%. HEENT: Unremarkable. NECK: No adenopathy or JVD. LUNGS: Clear to auscultation. CARDIAC: S1 and S2. Regular. 2/6 systolic murmur. ABDOMEN: Soft and obese. EXTREMITIES: No edema. LABORATORY DATA: White blood cell count 15.8, hematocrit 30, and platelet count 130. INR is 1.6. Sodium 142, potassium 3.9, chloride 114, CO2 of 22, BUN 17, creatinine 0.9, and glucose 133. His x-ray looks clear. ASSESSMENT: 1. Status post seizure episode. 2. Status post respiratory failure, requiring mechanical ventilation. PLAN: The patient can be moved to the floor. I will go ahead and stop his vancomycin. His other antibiotics can be consolidated, if his cultures are negative. His INR is slowly creeping up on the warfarin. I suspect he was not taking the medication prior to admission. Job ID: [id number]
[2019-08-07 10:13] LABS: Vancomycin, Trough 7.3 ug/mL
[2019-08-07] MEDS ORDERED: Topiramate 25 MG TAB PO SCH (11:00)
--- NOTE | 2019-08-07 11:56 | PRG ---
DATE OF TELEMEDICINE SERVICE: 08/07/2019 CHIEF COMPLAINT: Seizure. HISTORY OF PRESENT ILLNESS: Since yesterday, the patient is now extubated. He is in fact doing well. He does complain of headache per his family and is holding his head. He has severe hearing deficit; therefore, it is hard to communicate with him, but he seems to be very pleasant, oriented, and able to speak to us and follow commands. Cranial nerves 2 through 12, normal extraocular movements, no facial asymmetry. Motor, normal strength throughout, but cannot perform a full detailed neuro exam because of lack of understanding due to hearing loss and interval reports. No new neurological imaging studies are available. LABORATORY DATA: White count 15.8, hemoglobin 9.9, hematocrit 30, platelet count 130. Chemistry; sodium 142, potassium 3.9, chloride 114, bicarb 22, BUN 17, creatinine 0.8, glucose 133. IMPRESSION: The patient with altered mental status and had a seizure in the setting of sepsis. Rather than starting him on antiepileptic agents at this time, I would like to wait and see if there is any additional seizures before committing him to long-term antiepileptic agents, but in view of this headache I am starting him on Topamax 50 mg twice daily. Please obtain MRI of the brain to make sure there are no additional factors here prior to discharging this patient. I will follow up on an as-needed basis with this man. Job ID: [id number] MTDD
[2019-08-07] MEDS: Warfarin Sodium 5 MG TAB PO SCH (16:31)
--- NOTE | 2019-08-07 16:47 | PDOC.HOSPP ---
- Subjective Encounter Date: 08/07/19 Encounter Time: 12:45 Subjective: awake, was earlier talking to family at bedside is not steady to ambulate yet not in distress - Objective Vital Signs & Weight: Vital Signs (12 hours) Temp Pulse Pulse Resp BP Pulse Ox Pulse Ox 08/07/19 15:00 98.5 F 08/07/19 14:57 95 20 98 08/07/19 11:30 91 126/74 96 08/07/19 10:43 96 20 96 08/07/19 07:33 96 08/07/19 07:30 98.4 F 08/07/19 06:21 93 L 08/07/19 06:20 88 20 93 L Weight Admit Weight 203 lb Weight 203 lb 4.259 oz Most Recent Monitor Data Heart Rate from ECG 89 NIBP 162/95 NIBP BP-Mean 117 Respiration from ECG 16 SpO2 100 I&O: 08/06/19 08/07/19 08/08/19 06:59 06:59 06:59 Intake Total 1641 2640 145 Output Total 2360 1023 950 Balance -719 2207 -783 Result Diagrams: 08/07/19 03:51 08/07/19 03:51 Additional Labs: Accuchecks 08/07/19 08/07/19 12:19 00:37 POC Glucose 137 H 147 H Hospitalist ROS - Medication Medications: Active Medications Generic Name Dose Route Start Last Admin Trade Name Freq PRN Reason Stop Dose Admin Acetaminophen 650 mg 08/05/19 11:29 08/07/19 08:30 Tylenol [place] 650 mg Q4H PRN Administration Headache/Fever/Mild Pain (1-3) Acetaminophen 650 mg 08/05/19 11:29 08/05/19 20:25 Tylenol PO 650 mg Q4H PRN Administration Headache/Fever/Mild Pain (1-3) Albuterol Sulfate 1.25 mg 08/05/19 14:30 08/07/19 14:57 Albuterol Sulfate NEB 1.25 mg [id number] MARIA VICTORIA Administration Atorvastatin Calcium 40 mg 08/05/19 21:00 08/06/19 21:59 Lipitor PO Not Given HS MARIA VICTORIA Citalopram Hydrobromide 40 mg 08/05/19 21:00 08/06/19 21:59 Celexa PO Not Given HS MARIA VICTORIA Finasteride 5 mg 08/05/19 21:00 08/06/19 21:59 Proscar PO Not Given HS MARIA VICTORIA Levofloxacin 500 mg/ Device 100 mls @ 100 mls/hr 08/06/19 10:00 08/07/19 09: 38 IVPB 100 mls 1000 MARIA VICTORIA Administration Sodium Chloride 1,000 mls @ 80 mls/hr 08/05/19 11:30 08/07/19 13:55 Normal Saline 0.9% IV 1,000 mls .[id number] MARIA VICTORIA Administration Piperacillin Sod/Tazobactam 100 mls @ 200 mls/hr 08/05/19 14:00 08/07/19 13: 56 Sod 3.375 gm/ Sodium Chloride IVPB 100 mls Q8HR MARIA VICTORIA Administration Insulin Human Lispro 0 units 08/05/19 11:29 08/06/19 06:09 Humalog SC 2 unit .MODERATE SLIDING SC PRN Administration Moderate Correctional Scale Memantine 5 mg 08/06/19 09:00 08/07/19 09:38 Namenda PO 5 mg DAILY MARIA VICTORIA Administration Pantoprazole Sodium 40 mg 08/06/19 09:00 08/07/19 09:38 Protonix PO 40 mg DAILY MARIA VICTORIA Administration Polyethylene Glycol 17 gm 08/06/19 09:00 08/07/19 08:31 Miralax PO Not Given DAILY MARIA VICTORIA Warfarin Sodium 5 mg 08/05/19 17:00 08/07/19 16:31 Coumadin PO 5 mg 1700 MARIA VICTORIA Administration - Exam General Appearance: awake alert Eye: PERRL, anicteric sclera ENT: no oropharyngeal lesions, dry oral mucosa Neck: supple, no JVD Heart: RRR, no murmur Respiratory: no wheezes, no rales, rhonchi Gastrointestinal: soft, non-tender, non-distended, normal bowel sounds Extremities: no cyanosis, no edema Neurological: cranial nerve grossly intact, no focal deficits Hosp A/P (1) Sepsis Code(s): A41.9 - SEPSIS, UNSPECIFIED ORGANISM Status: Acute Qualifiers: Sepsis type: Streptococcus, unspecified Sepsis acute organ dysfunction status: with acute organ dysfunction Severe sepsis acute organ dysfunction type: acute respiratory failure (2) Acute respiratory failure with hypoxia Code(s): J96.01 - ACUTE RESPIRATORY FAILURE WITH HYPOXIA Status: Resolved (3) Bacteremia Code(s): R78.81 - BACTEREMIA Status: Acute (4) PNA (pneumonia) Code(s): J18.9 - PNEUMONIA, UNSPECIFIED ORGANISM Status: Acute Qualifiers: Pneumonia type: due to group B Streptococcus Laterality: left Lung location: lower lobe of lung Qualified Code(s): J15.3 - Pneumonia due to streptococcus, group B (5) Physical deconditioning Code(s): R53.81 - OTHER [place] Status: Acute (6) H/O deep venous thrombosis Code(s): Z86.718 - PERSONAL HISTORY OF OTHER VENOUS THROMBOSIS AND EMBOLISM Status: Chronic (7) CAD (coronary artery disease) Code(s): I25.10 - ATHSCL HEART DISEASE OF [place] CORONARY ARTERY W/O ANG PCTRS Status: Chronic Qualifiers: Coronary Disease-Associated Artery/Lesion type: [place] artery [place] vs. transplanted heart: [place] heart Associated angina: without angina Qualified Code(s): I25.10 - Atherosclerotic heart disease of [place] coronary artery without angina pectoris (8) H/O aortic valve replacement Code(s): Z95.2 - PRESENCE OF PROSTHETIC HEART VALVE Status: Chronic (9) Hypertension Code(s): I10 - ESSENTIAL (PRIMARY) HYPERTENSION Status: Chronic Qualifiers: Hypertension type: essential hypertension Qualified Code(s): I10 - Essential (primary) hypertension - Plan is on zosyn and levaquin nebs, got extubated on 08/06/2019, is doing well so far. continue coumadin for h/o dvt d/w , daughter and son in law at bedside, they are all in agreement for DNAR (08/06/2019) d/w son and grand daughter at bedside today and gave full updates. await full culture sensitivities, 2/2 blood are growing gm +ve cocci in pairs, ? strep, consult prognosis guarded has poor functional status MRI today may tx to med floor PT to mobilize as tolerated [facility].
[2019-08-07] MEDS: Citalopram 20 MG TAB PO SCH (21:16)
[2019-08-07] MEDS: Finasteride 5 MG TAB PO SCH (21:16)
[2019-08-07] MEDS: Atorvastatin Calcium 40 MG TAB PO SCH (21:16)
[2019-08-07] MEDS: Topiramate 25 MG TAB PO SCH (21:17)
[2019-08-08] MEDS: Albuterol Sulfate 1.25 MG/3 ML NEB NEB SCH ×6 (02:58→22:51)
[2019-08-08] MEDS: Piperacillin/Tazobactam 3.375 GM in Sodium Chloride 0.9% 100 ML IVPB SCH ×2 (06:10→14:27)
[2019-08-08 07:07] LABS: #Monocytes 0.4 thou/uL (0.11-0.59); #Neutrophils 10.7 thou/uL (1.40-6.50); %Basophils 0.2 % (0.0-1.0); %Lymphocytes 8.1 % (21.0-51.0); %Neutrophils 88.6 % (42.0-75.0); Mean Corpuscular HGB CONC 32.9 g/dL (32.0-36.0); Mean Corpuscular Hemoglobin 30.1 pg (27.0-31.0); Mean Corpuscular Volume 91.4 fL (78.0-98.0); Mean Platelet Volume 6.6 fL (7.4-10.4); Platelet Count 145 thou/uL (130-400); RBC Distribution Width 16.1 % (11.5-14.5); Red Blood Cell (RBC) Count 3.33 mill/uL (4.70-6.10); White Blood Cell (WBC) Count 12.1 thou/uL (4.8-10.8)
[2019-08-08 07:12] LABS: INR-International Normal Ratio 1.5; Prothrombin Time 17.7 SEC (12.0-14.7)
[2019-08-08 07:31] LABS: Anion Gap 12 mmol/L (10-20); BUN (Urea Nitrogen) 16 mg/dL (8.4-25.7); Calc. Creatinine Clearance 93 mL/min (70-130); Calcium 8.3 mg/dL (7.8-10.44); Carbon Dioxide 20 mmol/L (23-31); Chloride 116 mmol/L (98-107); Estimated GFR-MDRD 89; Glucose 120 mg/dL (83-110); Potassium 3.9 mmol/L (3.5-5.1); Sodium 144 mmol/L (136-145)
[2019-08-08] MEDS: Levofloxacin 750 mg/D5W 500 MG in Premix Bag 1 BAG IVPB SCH (09:41)
[2019-08-08] MEDS: Polyethylene Glycol 3350 17 GM Packet PO SCH (09:42)
[2019-08-08] MEDS: Acetaminophen 325 MG TAB PO PRN (09:42)
--- NOTE | 2019-08-08 11:34 | MRI ---
EXAM: MRI of the brain without contrast HISTORY: Seizure and incoherent COMPARISON: None TECHNIQUE: Multiplanar multisequence MR images were obtained of the brain without IV contrast. FINDINGS: Scattered foci of high T2/FLAIR signal in the subcortical and periventricular white matter are likely secondary to small vessel ischemic disease. There is apparent restricted diffusion in the periventricular white matter adjacent to the posterior horns of the right lateral ventricles. Alternatively, this could represent restricted diffusion within the dependent bilateral lateral ventricles. No hydronephrosis. No extra-axial fluid collection or intracranial hemorrhage. The expected flow voids are present. Corpus callosum, pituitary, and craniocervical junction are within normal limits. The calvarium and overlying soft tissues are unremarkable. Fluid is seen in the bilateral mastoid air cells. There is opacification of the left maxillary sinus. IMPRESSION: Nonspecific areas of restricted diffusion either in the deep dependent aspect of both lateral ventric les or in the adjacent periventricular white matter. This is nonspecific. This could be artifactual or represent infarctions in the paravertebral white matter adjacent to the posterior horn of the late ral ventricles. Less likely, material could be present within the lateral ventricles causing restricted diffusion.
[2019-08-08] MEDS: Topiramate 25 MG TAB PO SCH ×2 (11:47→21:48)
[2019-08-08] MEDS ORDERED: Vancomycin HCl 1 GM in Premix Bag 1 BAG IVPB SCH (14:25)
[2019-08-08] MEDS ORDERED: Vancomycin HCl 1.25 GM in Sodium Chloride 0.9% 250 ML 250 ML IVPB SCH (15:00)
--- NOTE | 2019-08-08 15:08 | PRG ---
DATE OF SERVICE: 08/08/2019 SUBJECTIVE: The patient is more calm today, less fidgety per the patient's family. He was awake earlier and was able to eat a fair amount of his lunch. Currently, he is sleeping and fairly somnolent. OBJECTIVE: VITAL SIGNS: T-max is a 102.1, however, nursing reported it is higher than that earlier, pulse 97, respirations 24, O2 saturation 99% on room air, BP 178/79. GENERAL APPEARANCE: Age-appropriate male, again fairly somnolent, a bit tachypneic. He is in no distress, otherwise. HEART: Regular with split S2 without murmurs. LUNGS: Clear bilaterally. He is tachypneic. There are no significant wheezes or rales. ABDOMEN: Soft, nondistended. Positive bowel sounds. EXTREMITIES: There is some edema of the left lower extremities. He has SCDs bilaterally. There is a very small ecchymotic area on the anterior left [place], but there are no otherwise breaks in the skin. There appears to be some chronic stasis dermatitis bronzing of the skin. LABORATORY DATA: Respiratory culture growing presumptive [place], urine growing Staph epidermidis. Blood cultures growing Strep pneumoniae. White count 12.1, hemoglobin is 10.0. INR is 1.5. Sodium 144, potassium 3.9, chloride 116, CO2 of 20, BUN 16, creatinine 0.83, glucose 120. MRI of the brain results show nonspecific areas of restricted diffusion either in the deep dependent aspect or both lateral ventricles or in the adjacent periventricular white matter. This is nonspecific, could be artifactual or represent infarctions in the periventricular white matter adjacent to the posterior horn of the lateral ventricles. IMPRESSION AND PLAN: 1. Sepsis with Strep pneumoniae bacteremia concerning for pneumonia, although his CT chest and chest x-rays are generally unimpressive, was doing well, unfortunately spiked another fever again today. 2. Acute hypoxic respiratory failure, still requiring some oxygen support. 3. Seizure. The patient apparently presented initially postictal phase following seizure type activity. Neurology is following, have opted not to start antiepileptics at this time. He does have the MRI findings back which are somewhat equivocal, but certainly concerning for possible watershed type ischemic event which could have accounted for seizure activity or current encephalopathy. We will have Neurology review the MRI results. 4. Bacteremia with strep pneumoniae, appears to be sensitive to Levaquin and should be sensitive to the Zosyn. However, he spiked fever again today. We will add vancomycin. ID consult pending. 5. History of aortic valve replacement, stable. However, concerning for bacteremia, especially with a recurrent fever. We will repeat blood cultures now, if positive we will need to certainly be more aggressive in evaluating for possible endocardial lesions or valvular lesions. 6. History of deep venous thrombosis, still has SCDs and INR is coming up on Coumadin. 7. History of coronary artery disease, stable. 8. Hypertension, stable. 9. Encephalopathy could be related to infection or possibly a watershed type ischemic stroke, seems to be improved today, not sure if that is related to the fever or if it is simply improving. I had a long discussion with the patient's children and spouse today. The patient's daughters expressed some concerns that they believe their mother is suffering from some mild dementia and want to make sure they are included on conversations regarding his care. Job ID: [id number]
[2019-08-08] MEDS: Sodium Chloride 0.9% 1,000 ML IV SCH (15:51)
[2019-08-08] MEDS: Acetaminophen 650 MG Suppository PR PRN (17:18)
[2019-08-08] MEDS ORDERED: Phytonadione 10 MG in Sodium Chloride 0.9% 50 ML IVPB SCH (17:30)
[2019-08-08] MEDS: Meropenem 2 GM, Admixture Fee 1 EACH in Sodium Chloride 0.9% 100 ML IVPB SCH (18:46)
[2019-08-08] MEDS: Atorvastatin Calcium 40 MG TAB PO SCH (21:47)
[2019-08-08] MEDS: Citalopram 20 MG TAB PO SCH (21:48)
[2019-08-08] MEDS: Finasteride 5 MG TAB PO SCH (21:48)
[2019-08-09] MEDS ORDERED: Labetalol HCl 100 MG/20 ML VIAL SLOW IVP PRN (00:39)
[2019-08-09] MEDS ORDERED: Acetaminophen 1,000 MG in Premix Bag 1 BAG IVPB SCH (00:45)
[2019-08-09] MEDS: Meropenem 2 GM, Admixture Fee 1 EACH in Sodium Chloride 0.9% 100 ML IVPB SCH ×3 (01:32→17:34)
[2019-08-09] MEDS: Albuterol Sulfate 1.25 MG/3 ML NEB NEB SCH ×6 (02:26→23:02)
[2019-08-09 06:03] LABS: #Lymphocytes 1.5 thou/uL (1.20-3.40); #Monocytes 0.5 thou/uL (0.11-0.59); #Neutrophils 8.1 thou/uL (1.40-6.50); %Eosinophils 0.1 % (0.0-10.0); %Lymphocytes 14.7 % (21.0-51.0); %Neutrophils 80.2 % (42.0-75.0); Hemoglobin 10.3 g/dL (14.0-18.0); Mean Corpuscular HGB CONC 33.1 g/dL (32.0-36.0); Mean Corpuscular Hemoglobin 30.1 pg (27.0-31.0); Mean Corpuscular Volume 90.9 fL (78.0-98.0); Mean Platelet Volume 6.7 fL (7.4-10.4); Platelet Count 125 thou/uL (130-400); RBC Distribution Width 16.3 % (11.5-14.5); Red Blood Cell (RBC) Count 3.44 mill/uL (4.70-6.10); White Blood Cell (WBC) Count 10.1 thou/uL (4.8-10.8)
[2019-08-09 06:06] LABS: INR-International Normal Ratio 1.3; Prothrombin Time 16.1 SEC (12.0-14.7)
[2019-08-09 06:25] LABS: Anion Gap 11 mmol/L (10-20); BUN (Urea Nitrogen) 17 mg/dL (8.4-25.7); Calc. Creatinine Clearance 93 mL/min (70-130); Calcium 8.2 mg/dL (7.8-10.44); Carbon Dioxide 20 mmol/L (23-31); Chloride 113 mmol/L (98-107); Estimated GFR-MDRD 89; Glucose 108 mg/dL (83-110); Potassium 3.8 mmol/L (3.5-5.1); Sodium 140 mmol/L (136-145)
[2019-08-09] MEDS: Sodium Chloride 0.9% 1,000 ML IV SCH ×2 (06:54→17:27)
[2019-08-09] MEDS ORDERED: Dexamethasone 4 MG in Sodium Chloride 0.9% 50 ML IVPB SCH (08:15)
--- NOTE | 2019-08-09 10:39 | RAD ---
XR Lumbar Punct Only W/Fluoro History: Pneumococcal meningitis Comparison: None. Findings: Patient was brought to the fluoroscopy suite. Questions were answered. Informed consent was already obtained. Timeout performed. The patient's back was prepped and draped in normal sterile fashion. The patient was unable to lie st ill during the exam. Using fluoroscopic guidance accessing the L3-L4 interspace patella 7 mL of thick mildly purulent mate rial was removed from the thecal sac. There is debris which occluded the needle after 7 mL. Incidental note is made of a left-sided cholelithiasis. Impression: Technically successful fluoroscopic guided lumbar puncture with removal of 7 mL thick pur ulent debris filled CSF.
[2019-08-09 11:22] LABS: Unspun CSF Color PALE YELLOW (Colorless)
[2019-08-09 11:23] LABS: Color Of CSF Supernatant YELLOW (Colorless)
[2019-08-09 11:24] LABS: Tube # 2
[2019-08-09 11:36] LABS: CSF, Glucose 30 mg/dl (40-70)
[2019-08-09] MEDS: Topiramate 25 MG TAB PO SCH ×2 (11:55→21:47)
[2019-08-09] MEDS: Polyethylene Glycol 3350 17 GM Packet PO SCH (11:55)
[2019-08-09 12:02] LABS: CSF, Protein 214 mg/dL (15-40)
[2019-08-09 12:11] LABS: CSF Source CSF
[2019-08-09 12:12] LABS: Clarity Cloudy/Turbid (Clear); Tube # 4
[2019-08-09 12:14] LABS: RBC Count - Manual 313 /cumm (None Seen); WBC/NonHematics Count - Manual 1195 /cumm (0-5)
[2019-08-09 12:31] LABS: Cell Count Non Hematic 10 %; Lymphocytes 26 %; Segmented Neutrophils 64 %
--- NOTE | 2019-08-09 13:51 | PDOC.HOSPP ---
- Subjective Encounter Date: 08/09/19 Encounter Time: 12:30 Subjective: Still non-verbal. - Objective Vital Signs & Weight: Vital Signs (12 hours) Temp Pulse Resp BP Pulse Ox 08/09/19 12:34 89 20 97 08/09/19 11:12 98.5 F 95 20 179/91 H 93 L 08/09/19 08:09 97.7 F 91 18 174/79 H 98 08/09/19 07:24 90 20 98 08/09/19 03:37 98 F 85 24 H 178/82 H 97 08/09/19 02:26 84 20 99 Weight Admit Weight 203 lb Weight 203 lb 4.259 oz Most Recent Monitor Data Heart Rate from ECG 89 NIBP 113/79 NIBP BP-Mean 90 Respiration from ECG 16 SpO2 100 I&O: 08/08/19 08/09/19 08/10/19 06:59 06:59 06:59 Intake Total 1292 1330 960 Output Total 1350 2131 Balance -58 1330 -1171 Result Diagrams: 08/09/19 05:42 08/09/19 05:42 Additional Labs: Accuchecks 08/09/19 08/09/19 08/09/19 11:15 05:53 00:42 POC Glucose 111 H 114 H 121 H 08/08/19 08/07/19 08/06/19 17:24 06:26 18:26 POC Glucose 127 H 125 H 147 H 08/06/19 08/06/19 06:07 00:17 POC Glucose 189 H 145 H Hospitalist ROS - Medication Medications: Active Medications Generic Name Dose Route Start Last Admin Trade Name Sundayq PRN Reason Stop Dose Admin Acetaminophen 650 mg 08/05/19 11:29 08/08/19 17:18 Tylenol [place] 650 mg Q4H PRN Administration Headache/Fever/Mild Pain (1-3) Acetaminophen 650 mg 08/05/19 11:29 08/08/19 09:42 Tylenol PO 650 mg Q4H PRN Administration Headache/Fever/Mild Pain (1-3) Albuterol Sulfate 1.25 mg 08/05/19 14:30 08/09/19 12:34 Albuterol Sulfate NEB 1.25 mg [id number] MARIA VICTORIA Administration Atorvastatin Calcium 40 mg 08/05/19 21:00 08/08/19 21:47 Lipitor PO Not Given HS MARIA VICTORIA Citalopram Hydrobromide 40 mg 08/05/19 21:00 08/08/19 21:48 Celexa PO Not Given HS ON LICENSE OF [facility] Finasteride 5 mg 08/05/19 21:00 08/08/19 21:48 Proscar PO Not Given HS ON LICENSE OF [facility] Sodium Chloride 1,000 mls @ 80 mls/hr 08/05/19 11:30 08/09/19 06:54 Normal Saline 0.9% IV 1,000 mls .[id number] MARIA VICTORIA Administration Meropenem 2 gm/ Miscellaneous 100 mls @ 100 mls/hr 08/08/19 18:00 08/09/19 11 :23 Medication 1 each/ Sodium IVPB 100 mls Chloride 0200,1000,1800 MARIA VICTORIA Administration Insulin Human Lispro 0 units 08/05/19 11:29 08/06/19 06:09 Humalog SC 2 unit .MODERATE SLIDING SC PRN Administration Moderate Correctional Scale Labetalol HCl 10 mg 08/09/19 00:39 08/09/19 01:01 Normodyne SLOW IVP 10 mg Q30MIN PRN Administration SBP > 180 or DBP > 110 Memantine 5 mg 08/06/19 09:00 08/09/19 11:54 Namenda PO Not Given DAILY ON LICENSE OF [facility] Pantoprazole Sodium 40 mg 08/06/19 09:00 08/09/19 11:54 Protonix PO Not Given DAILY ON LICENSE OF [facility] Polyethylene Glycol 17 gm 08/06/19 09:00 08/09/19 11:55 Miralax PO Not Given DAILY ON LICENSE OF [facility] Topiramate 50 mg 08/07/19 21:00 08/09/19 11:55 Topamax PO Not Given BID ON LICENSE OF [facility] - Exam General Appearance: NAD General - other findings: Awake. Eyes open, but does not track. Heart: RRR, no murmur, no gallops, no rubs, normal peripheral pulses Respiratory: CTAB, no wheezes, no rales, no ronchi, normal chest expansion, no tachypnea, normal percussion Gastrointestinal: soft, non-tender, non-distended, normal bowel sounds, no palpable masses, no hepatomegaly, no splenomegaly, no bruit Extremities: no cyanosis, no clubbing, no edema Skin: normal turgor Musculoskeletal: generalized weakness Psychiatric - other findings: Encephalopathic. Hosp A/P (1) Pneumococcal meningitis Code(s): G00.1 - PNEUMOCOCCAL MENINGITIS Status: Acute (2) Bacteremia due to Streptococcus pneumoniae Code(s): R78.81 - BACTEREMIA Status: Acute (3) Acute metabolic encephalopathy Code(s): G93.41 - METABOLIC ENCEPHALOPATHY Status: Acute (4) Seizure Code(s): R56.9 - UNSPECIFIED CONVULSIONS Status: Acute (5) Acute respiratory failure with hypoxia Code(s): J96.01 - ACUTE RESPIRATORY FAILURE WITH HYPOXIA Status: Resolved (6) Atrial fibrillation Code(s): I48.91 - UNSPECIFIED ATRIAL FIBRILLATION Status: Chronic (7) CAD (coronary artery disease) Code(s): I25.10 - ATHSCL HEART DISEASE OF [place] CORONARY ARTERY W/O ANG PCTRS Status: Chronic Qualifiers: Coronary Disease-Associated Artery/Lesion type: [place] artery [place] vs. transplanted heart: [place] heart Associated angina: without angina Qualified Code(s): I25.10 - Atherosclerotic heart disease of [place] coronary artery without angina pectoris (8) Chronic anticoagulation Code(s): Z79.01 - RN CARDIOVASCULAR (CURRENT) USE OF ANTICOAGULANTS Status: Chronic (9) H/O aortic valve replacement Code(s): Z95.2 - PRESENCE OF PROSTHETIC HEART VALVE Status: Chronic (10) Hypertension Code(s): I10 - ESSENTIAL (PRIMARY) HYPERTENSION Status: Chronic Qualifiers: Hypertension type: essential hypertension Qualified Code(s): I10 - Essential (primary) hypertension (11) Dysphagia Code(s): R13.10 - DYSPHAGIA, UNSPECIFIED Status: Acute - Plan Presented with seizure and required intubation. Blood cultures grew Strep pneumoniae. Remained encephalopathic after extubation. MRI appears to show "pus" in the ventricles. LP today confirms bacterial meningitis. Discussed with Dr. Herzog yesterday and started Meropenem (allergy to cephalosporin). One dose of decadron given. Continue Merem. ID consult pending. In isolation for the first 24 hours of abx regimen. Discussed with the patient's and daughter. Dysphagia due to encephalopathy. NPO for now. Need to continually reassess. Resume warfarin when able to take po's. Lovenox for now.
--- NOTE | 2019-08-09 18:29 | PRG ---
DATE OF SERVICE: 08/09/2019 We went to see the patient this morning on telemedicine rounds, but he was down in the procedure room obtaining a lumbar puncture. The patient's case was discussed last night with Dr. Mcmahon and the patient has abnormal deposit of purulent material in the ventricles per Radiology report, and due to presence of an altered mental status, this is most likely a situation intraventricular infection of some sort, which is rare. I discussed his case also with his daughter last night and suggested that they consider lumbar puncture and stopping his anticoagulation temporarily for this purpose. We will request Dr. Santacruz to see this patient tomorrow for additional input. I also checked this patient's CSF result and his white count is 1195, RBC 313, 64% neutrophils, protein is 214, glucose 30. 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 He will need ID consult and also broad-spectrum antibiotics. Dr. Santacruz will follow tomorrow. Job ID: [id number]
--- NOTE | 2019-08-09 20:06 | CON ---
DATE OF CONSULTATION: 08/09/2019 REASON FOR CONSULTATION: Meningitis. HISTORY OF PRESENT ILLNESS: An 79-year-old, history of coronary artery disease and bypass graft surgery; atrial fibrillation, on anticoagulation; CKD, stage 3; prior DVT; admitted on August 05 when he presented from [facility] due to altered mental status and cough. Apparently, he was having some left ear pain and drainage and some intermittent headaches according to the daughter. He had been admitted to [facility] because of osteoarthritis and mobility impairment. On arrival, BP 160/70, pulse 110, respiratory rate 32, temperature 99.7. He was disoriented and was not communicating. CT did not show any acute abnormalities. There was evidence of bilateral maxillary sinusitis, cortical atrophy. White cell count was 28,000 , hemoglobin 12, platelets 170, 27% bands, and albumin 3.8. Initial impression was sepsis of uncertain etiology, was placed on Zosyn, Levaquin, and vancomycin. He had to be intubated because to protect his airway. On the , he was more arousable. Continued on vancomycin, Zosyn, and levofloxacin. On the , he was able to talk to the family and he was extubated and was doing well. Two out of two sets of blood cultures yielded Streptococcus. He was transferred to the floor, and then on the , I was contacted over the phone and the patient had MRI findings that were concerning for meningitis. We directed the transition to meropenem at the time. His cultures have Strep pneumoniae, it was a pansensitive organism. The patient did have a history of allergy to cephalexin, so we opted for meropenem. Currently, Mr. Gee is obtunded. He does not open his eyes. He just came back from the procedure for the spinal tap, does not interact with the examiner. He has not had diarrhea. No more seizure activity, although he did have a seizure activity witnessed on arrival on the when he was admitted from the emergency room. PAST MEDICAL HISTORY: Coronary artery disease, bypass graft surgery; atrial fibrillation, on chronic anticoagulation; dyslipidemia, renal insufficiency, stage III; degenerative joint disease; deep vein thrombosis; carpal tunnel release; appendectomy; knee replacement, right side; osteoarthritis. ALLERGIES: HYDROCODONE AND CEPHALEXIN WITH RASH. SOCIAL HISTORY: Remote smoking. No alcoholic beverage use. FAMILY HISTORY: Noncontributory. CURRENT MEDICATIONS: 1. P.r.n. medications. 2. Dulcolax. 3. Celexa. 4. IV fluids. 5. Proscar. 6. Insulin. 7. Normodyne. 8. Namenda. 9. Meropenem q.8 2 g. 10. Topamax. PHYSICAL EXAMINATION: VITAL SIGNS: T-max 102.5 yesterday at 3 p.m., he is now 98.5. BP 170/91, pulse 95, respirations 20, O2 saturation 97%. SKIN: Shows peripheral IV access. He is voiding in the diaper. No petechia or purpura. No lymphadenopathy. HEENT: Pupils are constricted. Sclerae with mild conjunctival hyperemia. Nasal passages are patent. Ear exam shows otitis media, left side. Oral cavity was difficult to examine due to lack of cooperation and mental state. NECK: Somewhat stiff. No jugular vein distention. LUNGS: Symmetric, clear breath sounds. HEART: S1 and S2, regular rate. No S3 or S4. ABDOMEN: Soft. Not distended or tender. No ascites. No bladder distention. EXTREMITIES: Plantar responses are indifferent. Pulses 1+ in dorsalis pedis. No clonus. NEUROLOGIC: He seems to have good muscle tone in all 4 extremities. He is unresponsive at the moment. He will barely move his head side to side and grimaces a little bit when his name is called, but does not wake up. LABORATORY DATA: White cell count was at 28,000, it is down to 10.1; hemoglobin 10.3; platelets 125; 80% neutrophils. Sodium 140, creatinine 0.83. Liver profile normal. Albumin 3.8. The INR was 1.2, went up to 1.6 and then 1.3 today. The CSF showed 1095 WBCs with 64% neutrophils, glucose was 30, protein 214. Blood cultures with Strep pneumo, 2/2 sets of blood cultures. He also has coagulase-negative Staph, which is probably a contaminant. There is Staph epidermidis in urine and respiratory culture with [place], which are not pertinent to the current clinical features. The patient had a brain MRI done yesterday and it showed nonspecific areas of restricted diffusion in the deep dependent aspect of lateral ventricles, nonspecific. There is possibility of material present within the lateral ventricles caused restricted diffusion. ASSESSMENT: Coronary artery disease with bypass graft surgery in the past, osteoarthritis, otitis media, maxillary sinusitis, and Streptococcus pneumoniae meningitis. The patient did receive antimicrobial therapy from the beginning with regimen that would have significant activity against the organism, although not the top of the line regimen. We have switched him since yesterday evening to meropenem 2 g q.8, which will be continued and Decadron as well. Consider transfer to a place where he can be better monitored until he wakes up. Risk of complications such as obstructive hydro cephalus, infarctions are to be monitored for Job ID: [id number] [facility]
[2019-08-09] MEDS ORDERED: Enoxaparin Sodium 80 MG/0.8 ML SYRINGE SC SCH (21:00)
[2019-08-09] MEDS: Citalopram 20 MG TAB PO SCH (21:47)
[2019-08-09] MEDS: Atorvastatin Calcium 40 MG TAB PO SCH (21:48)
[2019-08-09] MEDS: Finasteride 5 MG TAB PO SCH (21:48)
[2019-08-10] MEDS: Sodium Chloride 0.9% 1,000 ML IV SCH ×2 (02:01→16:04)
[2019-08-10] MEDS: Meropenem 2 GM, Admixture Fee 1 EACH in Sodium Chloride 0.9% 100 ML IVPB SCH ×3 (02:01→17:44)
[2019-08-10] MEDS: Albuterol Sulfate 1.25 MG/3 ML NEB NEB SCH ×6 (03:35→22:48)
[2019-08-10 04:42] LABS: #Lymphocytes 1.6 thou/uL (1.20-3.40); #Monocytes 0.5 thou/uL (0.11-0.59); #Neutrophils 7.3 thou/uL (1.40-6.50); %Basophils 0.2 % (0.0-1.0); %Eosinophils 0.3 % (0.0-10.0); %Lymphocytes 16.5 % (21.0-51.0); %Monocytes 5.1 % (0.0-10.0); Hemoglobin 11.1 g/dL (14.0-18.0); Mean Corpuscular HGB CONC 33.4 g/dL (32.0-36.0); Mean Corpuscular Hemoglobin 30.3 pg (27.0-31.0); Mean Corpuscular Volume 90.8 fL (78.0-98.0); Mean Platelet Volume 6.6 fL (7.4-10.4); Platelet Count 133 thou/uL (130-400); RBC Distribution Width 16.3 % (11.5-14.5); Red Blood Cell (RBC) Count 3.68 mill/uL (4.70-6.10); White Blood Cell (WBC) Count 9.4 thou/uL (4.8-10.8)
[2019-08-10 04:45] LABS: INR-International Normal Ratio 1.2; Prothrombin Time 14.7 SEC (12.0-14.7)
[2019-08-10 05:08] LABS: Anion Gap 12 mmol/L (10-20); BUN (Urea Nitrogen) 20 mg/dL (8.4-25.7); Calc. Creatinine Clearance 102 mL/min (70-130); Calcium 8.2 mg/dL (7.8-10.44); Carbon Dioxide 19 mmol/L (23-31); Chloride 111 mmol/L (98-107); Estimated GFR-MDRD Greater than 90; Glucose 101 mg/dL (83-110); Sodium 138 mmol/L (136-145)
[2019-08-10] MEDS: Topiramate 25 MG TAB PO SCH ×2 (09:55→20:10)
[2019-08-10] MEDS: Enoxaparin Sodium 80 MG/0.8 ML SYRINGE SC SCH ×2 (09:56→20:10)
[2019-08-10] MEDS: Polyethylene Glycol 3350 17 GM Packet PO SCH (09:56)
[2019-08-10] MEDS: Citalopram 20 MG TAB PO SCH (20:09)
[2019-08-10] MEDS: Finasteride 5 MG TAB PO SCH (20:09)
[2019-08-10] MEDS: Atorvastatin Calcium 40 MG TAB PO SCH (20:10)
[2019-08-10] MEDS: Acetaminophen 325 MG TAB PO PRN (20:20)
--- NOTE | 2019-08-10 22:23 | PDOC.HOSPP ---
- Subjective Subjective: Doing remarkably well. Denies complaints or concerns. Family in the room. - Objective Vital Signs & Weight: Vital Signs (12 hours) Temp Pulse Resp BP BP BP Pulse Ox 08/10/19 20:06 97.8 F 85 18 154/74 H 95 08/10/19 19:37 88 16 95 08/10/19 15:50 97 F L 84 18 153/74 H 96 08/10/19 10:55 98.2 F 87 22 H 156/80 H 96 08/10/19 10:37 134/70 156/80 H Weight Admit Weight 203 lb Weight 203 lb 4.259 oz Most Recent Monitor Data Heart Rate from ECG 89 NIBP 113/79 NIBP BP-Mean 90 Respiration from ECG 16 SpO2 100 I&O: 08/09/19 08/10/19 08/11/19 06:59 06:59 06:59 Intake Total 1330 2125 Output Total 2131 Balance 1330 -6 Result Diagrams: 08/11/19 04:24 08/11/19 04:23 Additional Labs: Accuchecks 08/10/19 08/10/19 08/10/19 21:19 12:27 06:01 POC Glucose 142 H 148 H 110 Hospitalist ROS - Medication Medications: Active Medications Generic Name Dose Route Start Last Admin Trade Name Freq PRN Reason Stop Dose Admin Acetaminophen 650 mg 08/05/19 11:29 08/08/19 17:18 Tylenol [place] 650 mg Q4H PRN Administration Headache/Fever/Mild Pain (1-3) Acetaminophen 650 mg 08/05/19 11:29 08/10/19 20:20 Tylenol PO 650 mg Q4H PRN Administration Headache/Fever/Mild Pain (1-3) Albuterol Sulfate 1.25 mg 08/05/19 14:30 08/10/19 19:37 Albuterol Sulfate NEB 1.25 mg [id number] MARIA VICTORIA Administration Atorvastatin Calcium 40 mg 08/05/19 21:00 08/10/19 20:10 Lipitor PO 40 mg HS MARIA VICTORIA Administration Citalopram Hydrobromide 40 mg 08/05/19 21:00 08/10/19 20:09 Celexa PO 40 mg HS MARIA VICTORIA Administration Enoxaparin Sodium 80 mg 08/10/19 09:00 08/10/19 20:10 Lovenox SC 80 mg 0900,2100 MARIA VICTORIA Administration Finasteride 5 mg 08/05/19 21:00 08/10/19 20:09 Proscar PO 5 mg HS MARIA VICTORIA Administration Sodium Chloride 1,000 mls @ 80 mls/hr 08/05/19 11:30 08/10/19 16:04 Normal Saline 0.9% IV 1,000 mls .[id number] MARIA VICTORIA Administration Meropenem 2 gm/ Miscellaneous 100 mls @ 100 mls/hr 08/08/19 18:00 08/10/19 17 :44 Medication 1 each/ Sodium IVPB 100 mls Chloride 0200,1000,1800 MARIA VICTORIA Administration Insulin Human Lispro 0 units 08/05/19 11:29 08/06/19 06:09 Humalog SC 2 unit .MODERATE SLIDING SC PRN Administration Moderate Correctional Scale Labetalol HCl 10 mg 08/09/19 00:39 08/09/19 01:01 Normodyne SLOW IVP 10 mg Q30MIN PRN Administration SBP > 180 or DBP > 110 Memantine 5 mg 08/06/19 09:00 08/10/19 09:55 Namenda PO 5 mg DAILY MARIA VICTORIA Administration Pantoprazole Sodium 40 mg 08/06/19 09:00 08/10/19 09:56 Protonix PO 40 mg DAILY MARIA VICTORIA Administration Polyethylene Glycol 17 gm 08/06/19 09:00 08/10/19 09:56 Miralax PO Not Given DAILY MARIA VICTORIA Topiramate 50 mg 08/07/19 21:00 08/10/19 20:10 Topamax PO 50 mg BID MARIA VICTORIA Administration - Exam General Appearance: NAD, awake alert Heart: RRR, no murmur, no gallops, no rubs, normal peripheral pulses Respiratory: CTAB, no wheezes, no rales, no ronchi, normal chest expansion, no tachypnea, normal percussion Gastrointestinal: soft, non-tender, non-distended, normal bowel sounds, no palpable masses, no hepatomegaly, no splenomegaly, no bruit Extremities: no cyanosis, no clubbing, no edema Skin: normal turgor Neurological: no focal deficits Psychiatric: normal behavior, not oriented (Pleasantly confused.) Hosp A/P (1) Pneumococcal meningitis Code(s): G00.1 - PNEUMOCOCCAL MENINGITIS Status: Acute (2) Bacteremia due to Streptococcus pneumoniae Code(s): R78.81 - BACTEREMIA Status: Acute (3) Acute metabolic encephalopathy Code(s): G93.41 - METABOLIC ENCEPHALOPATHY Status: Acute (4) Seizure Code(s): R56.9 - UNSPECIFIED CONVULSIONS Status: Acute (5) Acute respiratory failure with hypoxia Code(s): J96.01 - ACUTE RESPIRATORY FAILURE WITH HYPOXIA Status: Resolved (6) Atrial fibrillation Code(s): I48.91 - UNSPECIFIED ATRIAL FIBRILLATION Status: Chronic (7) CAD (coronary artery disease) Code(s): I25.10 - ATHSCL HEART DISEASE OF [place] CORONARY ARTERY W/O ANG PCTRS Status: Chronic Qualifiers: Coronary Disease-Associated Artery/Lesion type: [place] artery [place] vs. transplanted heart: [place] heart Associated angina: without angina Qualified Code(s): I25.10 - Atherosclerotic heart disease of [place] coronary artery without angina pectoris (8) Chronic anticoagulation Code(s): Z79.01 - [place]ACK[place] (CURRENT) USE OF ANTICOAGULANTS Status: Chronic (9) H/O aortic valve replacement Code(s): Z95.2 - PRESENCE OF PROSTHETIC HEART VALVE Status: Chronic (10) Hypertension Code(s): I10 - ESSENTIAL (PRIMARY) HYPERTENSION Status: Chronic Qualifiers: Hypertension type: essential hypertension Qualified Code(s): I10 - Essential (primary) hypertension (11) Dysphagia Code(s): R13.10 - DYSPHAGIA, UNSPECIFIED Status: Acute - Plan Presented with seizure and required intubation. Blood cultures grew Strep pneumoniae. Remained encephalopathic after extubation. MRI appears to show "pus" in the ventricles. LP confirms bacterial meningitis. Discussed with Dr. Herzog and started Meropenem (allergy to cephalosporin). Continue Merem. Resume warfarin when able to take po's. Lovenox for now.
[2019-08-11] MEDS: Meropenem 2 GM, Admixture Fee 1 EACH in Sodium Chloride 0.9% 100 ML IVPB SCH ×3 (02:29→17:53)
[2019-08-11] MEDS: Albuterol Sulfate 1.25 MG/3 ML NEB NEB SCH ×6 (02:33→22:32)
[2019-08-11 04:45] LABS: #Basophils 0.1 thou/uL (0.0-0.2); #Eosinphils 0.1 thou/uL (0.0-0.7); #Lymphocytes 1.6 thou/uL (1.20-3.40); #Monocytes 0.4 thou/uL (0.11-0.59); #Neutrophils 6.7 thou/uL (1.40-6.50); %Basophils 1.7 % (0.0-1.0); %Eosinophils 1.5 % (0.0-10.0); %Lymphocytes 17.9 % (21.0-51.0); %Monocytes 4.5 % (0.0-10.0); %Neutrophils 74.4 % (42.0-75.0); Mean Corpuscular HGB CONC 32.4 g/dL (32.0-36.0); Mean Corpuscular Hemoglobin 29.7 pg (27.0-31.0); Mean Corpuscular Volume 91.7 fL (78.0-98.0); Platelet Count 144 thou/uL (130-400); RBC Distribution Width 16.4 % (11.5-14.5)
[2019-08-11 04:54] LABS: INR-International Normal Ratio 1.1; Prothrombin Time 14.2 SEC (12.0-14.7)
[2019-08-11 05:11] LABS: Anion Gap 10 mmol/L (10-20); BUN (Urea Nitrogen) 22 mg/dL (8.4-25.7); Calc. Creatinine Clearance 96 mL/min (70-130); Calcium 8.1 mg/dL (7.8-10.44); Carbon Dioxide 22 mmol/L (23-31); Chloride 108 mmol/L (98-107); Estimated GFR-MDRD Greater than 90; Glucose 98 mg/dL (83-110); Potassium 3.7 mmol/L (3.5-5.1); Sodium 136 mmol/L (136-145)
[2019-08-11] MEDS: Sodium Chloride 0.9% 1,000 ML IV SCH ×2 (05:50→17:54)
[2019-08-11] MEDS: Enoxaparin Sodium 80 MG/0.8 ML SYRINGE SC SCH ×2 (09:38→21:30)
[2019-08-11] MEDS: Polyethylene Glycol 3350 17 GM Packet PO SCH (09:38)
[2019-08-11] MEDS: Topiramate 25 MG TAB PO SCH ×2 (09:46→21:30)
--- NOTE | 2019-08-11 16:08 | PRG ---
DATE OF SERVICE: 08/11/2019 SUBJECTIVE: The patient has woken up. His mental status is back to normal. No headaches. No respiratory symptoms or abdominal pain. No diarrhea. OBJECTIVE: VITAL SIGNS: He is afebrile now for 2 days. Other vital signs are okay. LUNGS: Clear. HEART: S1 and S2, regular rate. ABDOMEN: Soft and not distended. EXTREMITIES: Moves extremities equally. LABORATORY DATA: White cell count 9.0, hemoglobin 11, platelets 144. Creatinine 0.8. Spinal fluid culture thus far negative. ASSESSMENT AND DISCUSSION: Coronary artery disease; bypass graft surgery; Streptococcus pneumoniae meningitis, which has responded nicely to meropenem and Decadron. Decadron can be discontinued and continue meropenem now for a total of 21 days, the end date of therapy is estimated around August 27. Weekly labs. Job ID: [id number]
--- NOTE | 2019-08-11 17:21 | PDOC.HOSPP ---
- Subjective Subjective: Continues to extremely well. No complaints/concerns. Family is very pleased with the progress. - Objective Vital Signs & Weight: Vital Signs (12 hours) Temp Pulse Pulse Pulse Resp BP BP 08/11/19 15:52 97.6 F 80 21 H 08/11/19 13:41 86 81 138/77 144/67 H 08/11/19 11:20 99.0 F 82 26 H 08/11/19 11:06 87 16 08/11/19 07:48 82 16 08/11/19 07:35 97.5 F L 79 25 H BP Pulse Ox 08/11/19 15:52 152/71 H 97 08/11/19 13:41 08/11/19 11:20 151/79 H 97 08/11/19 11:06 96 08/11/19 07:48 96 08/11/19 07:35 169/91 H 95 Weight Admit Weight 203 lb Weight 204 lb 2.369 oz Most Recent Monitor Data Heart Rate from ECG 89 NIBP 113/79 NIBP BP-Mean 90 Respiration from ECG 16 SpO2 100 I&O: 08/10/19 08/11/19 08/12/19 06:59 06:59 06:59 Intake Total 2125 Output Total 2131 Balance -6 Result Diagrams: 08/11/19 04:24 08/11/19 04:23 Additional Labs: Accuchecks 08/11/19 08/11/19 08/10/19 13:09 04:08 21:19 POC Glucose 114 H 104 142 H 08/08/19 12:43 POC Glucose 152 H Hospitalist ROS - Medication Medications: Active Medications Generic Name Dose Route Start Last Admin Trade Name Freq PRN Reason Stop Dose Admin Acetaminophen 650 mg 08/05/19 11:29 08/08/19 17:18 Tylenol [place] 650 mg Q4H PRN Administration Headache/Fever/Mild Pain (1-3) Acetaminophen 650 mg 08/05/19 11:29 08/10/19 20:20 Tylenol PO 650 mg Q4H PRN Administration Headache/Fever/Mild Pain (1-3) Albuterol Sulfate 1.25 mg 08/05/19 14:30 08/11/19 15:12 Albuterol Sulfate NEB Not Given [id number] MARIA VICTORIA Atorvastatin Calcium 40 mg 08/05/19 21:00 08/10/19 20:10 Lipitor PO 40 mg HS MARIA VICTORIA Administration Citalopram Hydrobromide 40 mg 08/05/19 21:00 08/10/19 20:09 Celexa PO 40 mg HS MARIA VICTORIA Administration Enoxaparin Sodium 80 mg 08/10/19 09:00 08/11/19 09:38 Lovenox SC 80 mg 0900,2100 MARIA VICTORIA Administration Finasteride 5 mg 08/05/19 21:00 08/10/19 20:09 Proscar PO 5 mg HS MARIA VICTORIA Administration Sodium Chloride 1,000 mls @ 80 mls/hr 08/05/19 11:30 08/11/19 05:50 Normal Saline 0.9% IV 1,000 mls .[id number] MARIA VICTORIA Administration Meropenem 2 gm/ Miscellaneous 100 mls @ 100 mls/hr 08/08/19 18:00 08/11/19 11 :17 Medication 1 each/ Sodium IVPB 100 mls Chloride 0200,1000,1800 MARIA VICTORIA Administration Insulin Human Lispro 0 units 08/05/19 11:29 08/06/19 06:09 Humalog SC 2 unit .MODERATE SLIDING SC PRN Administration Moderate Correctional Scale Labetalol HCl 10 mg 08/09/19 00:39 08/09/19 01:01 Normodyne SLOW IVP 10 mg Q30MIN PRN Administration SBP > 180 or DBP > 110 Memantine 5 mg 08/06/19 09:00 08/11/19 09:37 Namenda PO 5 mg DAILY MARIA VICTORIA Administration Pantoprazole Sodium 40 mg 08/06/19 09:00 08/11/19 09:39 Protonix PO 40 mg DAILY MARIA VICTORIA Administration Polyethylene Glycol 17 gm 08/06/19 09:00 08/11/19 09:38 Miralax PO Not Given DAILY MARIA VICTORIA Topiramate 50 mg 08/07/19 21:00 08/11/19 09:46 Topamax PO 50 mg BID MARIA VICTORIA Administration - Exam General Appearance: NAD, awake alert Heart: RRR, no murmur, no gallops, no rubs, normal peripheral pulses Respiratory: CTAB, no wheezes, no rales, no ronchi, normal chest expansion, no tachypnea, normal percussion Gastrointestinal: soft, non-tender, non-distended, normal bowel sounds, no palpable masses, no hepatomegaly, no splenomegaly, no bruit Neurological: no focal deficits Musculoskeletal: generalized weakness Psychiatric: not oriented Psychiatric - other findings: Dementia. Pleasant. Hosp A/P (1) Pneumococcal meningitis Code(s): G00.1 - PNEUMOCOCCAL MENINGITIS Status: Acute (2) Bacteremia due to Streptococcus pneumoniae Code(s): R78.81 - BACTEREMIA Status: Acute (3) Acute metabolic encephalopathy Code(s): G93.41 - METABOLIC ENCEPHALOPATHY Status: Acute (4) Seizure Code(s): R56.9 - UNSPECIFIED CONVULSIONS Status: Acute (5) Acute respiratory failure with hypoxia Code(s): J96.01 - ACUTE RESPIRATORY FAILURE WITH HYPOXIA Status: Resolved (6) Atrial fibrillation Code(s): I48.91 - UNSPECIFIED ATRIAL FIBRILLATION Status: Chronic (7) CAD (coronary artery disease) Code(s): I25.10 - ATHSCL HEART DISEASE OF [place] CORONARY ARTERY W/O ANG PCTRS Status: Chronic Qualifiers: Coronary Disease-Associated Artery/Lesion type: [place] artery [place] vs. transplanted heart: [place] heart Associated angina: without angina Qualified Code(s): I25.10 - Atherosclerotic heart disease of [place] coronary artery without angina pectoris (8) Chronic anticoagulation Code(s): Z79.01 - [place] (CURRENT) USE OF ANTICOAGULANTS Status: Chronic (9) H/O aortic valve replacement Code(s): Z95.2 - PRESENCE OF PROSTHETIC HEART VALVE Status: Chronic (10) Hypertension Code(s): I10 - ESSENTIAL (PRIMARY) HYPERTENSION Status: Chronic Qualifiers: Hypertension type: essential hypertension Qualified Code(s): I10 - Essential (primary) hypertension (11) Dysphagia Code(s): R13.10 - DYSPHAGIA, UNSPECIFIED Status: Acute - Plan Presented with seizure and required intubation. Blood cultures grew Strep pneumoniae. Remained encephalopathic after extubation. MRI appears to show "pus" in the ventricles. LP confirms bacterial meningitis. Discussed with Dr. Herzog and started Meropenem (allergy to cephalosporin). Continue Merem for three weeks. Resume warfarin. CM consult for SNF rehab placement.
[2019-08-11] MEDS: Warfarin Sodium 5 MG TAB PO SCH (18:39)
--- NOTE | 2019-08-11 20:11 | PDOC.EVN ---
Event Note - Event Note Event Note: Yany Hardwick RN called with concern about sending Mr Gee to medical after he had 16 beats of SVT this am. Would prefer to keep him on Tele for tonight and transfer to medical in the AM if still okay with Sound doctor.
[2019-08-11] MEDS: Atorvastatin Calcium 40 MG TAB PO SCH (21:29)
[2019-08-11] MEDS: Citalopram 20 MG TAB PO SCH (21:29)
[2019-08-11] MEDS: Finasteride 5 MG TAB PO SCH (21:30)
[2019-08-12] MEDS: Meropenem 2 GM, Admixture Fee 1 EACH in Sodium Chloride 0.9% 100 ML IVPB SCH ×2 (01:49→12:49)
[2019-08-12] MEDS: Albuterol Sulfate 1.25 MG/3 ML NEB NEB SCH ×6 (02:46→22:43)
[2019-08-12 04:57] LABS: INR-International Normal Ratio 1.1; PTT 37.3 SEC (22.9-36.1); Prothrombin Time 14.6 SEC (12.0-14.7)
[2019-08-12 05:05] LABS: Anion Gap 11 mmol/L (10-20); BUN (Urea Nitrogen) 18 mg/dL (8.4-25.7); Calc. Creatinine Clearance 94 mL/min (70-130); Calcium 8.2 mg/dL (7.8-10.44); Carbon Dioxide 20 mmol/L (23-31); Chloride 110 mmol/L (98-107); Estimated GFR-MDRD Greater than 90; Glucose 101 mg/dL (83-110); Potassium 3.7 mmol/L (3.5-5.1); Sodium 137 mmol/L (136-145)
[2019-08-12 05:13] LABS: Band 1 % (5-11); Eosinophils 1 % (0-10); Hemoglobin 11.6 g/dL (14.0-18.0); Lymphocytes 24 % (21-51); MDiff Complete? YES; Mean Corpuscular HGB CONC 34.1 g/dL (32.0-36.0); Mean Corpuscular Hemoglobin 31.2 pg (27.0-31.0); Mean Corpuscular Volume 91.5 fL (78.0-98.0); Mean Platelet Volume 7.3 fL (7.4-10.4); Monocytes 6 % (0-10); Neutrophil 68 % (42-75); Platelet Count 149 thou/uL (130-400); Platelet Morphology Comment Appears Adequate; RBC Distribution Width 16.4 % (11.5-14.5); Red Blood Cell (RBC) Count 3.72 mill/uL (4.70-6.10); White Blood Cell (WBC) Count 9.9 thou/uL (4.8-10.8)
[2019-08-12] MEDS: Enoxaparin Sodium 80 MG/0.8 ML SYRINGE SC SCH ×2 (08:13→20:25)
[2019-08-12] MEDS: Polyethylene Glycol 3350 17 GM Packet PO SCH (08:13)
[2019-08-12] MEDS: Topiramate 25 MG TAB PO SCH ×2 (08:16→21:29)
[2019-08-12] MEDS: Sodium Chloride 0.9% 1,000 ML IV SCH ×2 (08:25→22:00)
--- NOTE | 2019-08-12 09:48 | SPC ---
SPC CVP LINE PICC INITAL >5 History: Need for long-term IV access Comparison: None. Findings: Patient was brought to the special suite. All questions were answered. Informed consent was obtained. Timeout performed. The patient's left arm was prepped and draped in normal sterile fashion. Using ultrasound guidance th e left basilic vein was accessed. Over a wire and through a peel-away sheath using fluoroscopic guidance a PICC was placed with tip at the inferior SVC. Patient tolerated the procedure well without complication. Impression: Technically successful ultrasound fluoroscopic guided PICC placement.
[2019-08-12] MEDS: Warfarin Sodium 5 MG TAB PO SCH (17:44)
[2019-08-12] MEDS: Citalopram 20 MG TAB PO SCH (20:25)
[2019-08-12] MEDS: Finasteride 5 MG TAB PO SCH (20:25)
[2019-08-12] MEDS: Atorvastatin Calcium 40 MG TAB PO SCH (20:25)
[2019-08-12] MEDS: Meropenem 2 GM in Sodium Chloride 0.9% 100 ML IVPB SCH (21:28)
[2019-08-12] MEDS: Acetaminophen 325 MG TAB PO PRN (21:37)
--- NOTE | 2019-08-12 21:56 | PDOC.HOSPP ---
- Subjective Subjective: Doing ok. No complaints. No family present today. - Objective Vital Signs & Weight: Vital Signs (12 hours) Temp Pulse Resp BP Pulse Ox 08/12/19 20:00 98.3 F 84 16 129/69 96 08/12/19 18:25 83 16 99 08/12/19 16:15 98.3 F 83 18 161/82 H 98 08/12/19 15:36 87 16 08/12/19 12:00 96 08/12/19 11:20 98.3 F 87 18 119/69 96 08/12/19 10:49 79 20 94 L Weight Admit Weight 203 lb Weight 196 lb 12.8 oz Most Recent Monitor Data Heart Rate from ECG 89 NIBP 113/79 NIBP BP-Mean 90 Respiration from ECG 16 SpO2 100 I&O: 08/11/19 08/12/19 08/13/19 06:59 06:59 06:59 Intake Total 1022 Balance 1022 Result Diagrams: 08/12/19 04:08 08/12/19 04:08 Additional Labs: Accuchecks 08/12/19 08/12/19 05:31 01:53 POC Glucose 98 112 H Hospitalist ROS - Medication Medications: Active Medications Generic Name Dose Route Start Last Admin Trade Name Freq PRN Reason Stop Dose Admin Acetaminophen 650 mg 08/05/19 11:29 08/08/19 17:18 Tylenol MS 650 mg Q4H PRN Administration Headache/Fever/Mild Pain (1-3) Acetaminophen 650 mg 08/05/19 11:29 08/12/19 21:37 Tylenol PO 650 mg Q4H PRN Administration Headache/Fever/Mild Pain (1-3) Albuterol Sulfate 1.25 mg 08/05/19 14:30 08/12/19 18:25 Albuterol Sulfate NEB 1.25 mg [id number] MARIA VICTORIA Administration Atorvastatin Calcium 40 mg 08/05/19 21:00 08/12/19 20:25 Lipitor PO 40 mg HS MARIA VICTORIA Administration Citalopram Hydrobromide 40 mg 08/05/19 21:00 08/12/19 20:25 Celexa PO 40 mg HS MARIA VICTORIA Administration Enoxaparin Sodium 80 mg 08/10/19 09:00 08/12/19 20:25 Lovenox SC 80 mg 0900,2100 MARIA VICTORIA Administration Finasteride 5 mg 08/05/19 21:00 08/12/19 20:25 Proscar PO 5 mg HS MARIA VICTORIA Administration Sodium Chloride 1,000 mls @ 80 mls/hr 08/05/19 11:30 08/12/19 08:25 Normal Saline 0.9% IV 1,000 mls .[id number] MARIA VICTORIA Administration Meropenem 2 gm/ Miscellaneous 100 mls @ 100 mls/hr 08/12/19 21:00 08/12/19 21 :28 Medication 1 each/ Sodium IVPB 100 mls Chloride 0500,1300,2100 MARIA VICTORIA Administration Insulin Human Lispro 0 units 08/05/19 11:29 08/06/19 06:09 Humalog SC 2 unit .MODERATE SLIDING SC PRN Administration Moderate Correctional Scale Labetalol HCl 10 mg 08/09/19 00:39 08/09/19 01:01 Normodyne SLOW IVP 10 mg Q30MIN PRN Administration SBP > 180 or DBP > 110 Memantine 5 mg 08/06/19 09:00 08/12/19 08:11 Namenda PO 5 mg DAILY MARIA VICTORIA Administration Pantoprazole Sodium 40 mg 08/06/19 09:00 08/12/19 08:13 Protonix PO 40 mg DAILY MARIA VICTORIA Administration Polyethylene Glycol 17 gm 08/06/19 09:00 08/12/19 08:13 Miralax PO Not Given DAILY MARIA VICTORIA Sodium Chloride 10 ml 08/12/19 21:00 08/12/19 21:29 Flush - Normal Saline IVF 10 ml Q12HR MARIA VICTORIA Administration Topiramate 50 mg 08/07/19 21:00 08/12/19 21:29 Topamax PO 50 mg BID MARIA VICTORIA Administration Warfarin Sodium 5 mg 08/11/19 17:00 08/12/19 17:44 Coumadin PO 5 mg 1700 MARIA VICTORIA Administration - Exam General Appearance: NAD, awake alert Neck: supple, symmetric, no JVD, no thyromegaly, no lymphadenopathy, no carotid bruit Heart: RRR, no murmur, no gallops, no rubs, normal peripheral pulses Respiratory: CTAB, no wheezes, no rales, no ronchi, normal chest expansion, no tachypnea, normal percussion Hosp A/P (1) Pneumococcal meningitis Code(s): G00.1 - PNEUMOCOCCAL MENINGITIS Status: Acute (2) Bacteremia due to Streptococcus pneumoniae Code(s): R78.81 - BACTEREMIA Status: Acute (3) Acute metabolic encephalopathy Code(s): G93.41 - METABOLIC ENCEPHALOPATHY Status: Acute (4) Seizure Code(s): R56.9 - UNSPECIFIED CONVULSIONS Status: Acute (5) Acute respiratory failure with hypoxia Code(s): J96.01 - ACUTE RESPIRATORY FAILURE WITH HYPOXIA Status: Resolved (6) Atrial fibrillation Code(s): I48.91 - UNSPECIFIED ATRIAL FIBRILLATION Status: Chronic (7) CAD (coronary artery disease) Code(s): I25.10 - ATHSCL HEART DISEASE OF [place] CORONARY ARTERY W/O ANG PCTRS Status: Chronic Qualifiers: Coronary Disease-Associated Artery/Lesion type: [place] artery [place] vs. transplanted heart: [place] heart Associated angina: without angina Qualified Code(s): I25.10 - Atherosclerotic heart disease of [place] coronary artery without angina pectoris (8) Chronic anticoagulation Code(s): Z79.01 - CLINICAL RESEARCHER (CURRENT) USE OF ANTICOAGULANTS Status: Chronic (9) H/O aortic valve replacement Code(s): Z95.2 - PRESENCE OF PROSTHETIC HEART VALVE Status: Chronic (10) Hypertension Code(s): I10 - ESSENTIAL (PRIMARY) HYPERTENSION Status: Chronic Qualifiers: Hypertension type: essential hypertension Qualified Code(s): I10 - Essential (primary) hypertension (11) Dysphagia Code(s): R13.10 - DYSPHAGIA, UNSPECIFIED Status: Acute - Plan Presented with seizure and required intubation. Blood cultures grew Strep pneumoniae. Remained encephalopathic after extubation. MRI appears to show "pus" in the ventricles. LP confirms bacterial meningitis. Discussed with Dr. Herzog and started Meropenem (allergy to cephalosporin). Continue Merem for three weeks. Resume warfarin. CM consult for SNF rehab placement. PICC placed.
[2019-08-13] MEDS: Meropenem 2 GM in Sodium Chloride 0.9% 100 ML IVPB SCH ×2 (04:19→13:50)
[2019-08-13] MEDS: Albuterol Sulfate 1.25 MG/3 ML NEB NEB SCH ×3 (04:22→11:07)
[2019-08-13 06:17] LABS: #Eosinphils 0.2 thou/uL (0.0-0.7); #Lymphocytes 1.9 thou/uL (1.20-3.40); #Monocytes 0.4 thou/uL (0.11-0.59); %Basophils 0.3 % (0.0-1.0); %Eosinophils 2.8 % (0.0-10.0); %Lymphocytes 22.5 % (21.0-51.0); %Monocytes 4.3 % (0.0-10.0); %Neutrophils 70.1 % (42.0-75.0); Hemoglobin 11.8 g/dL (14.0-18.0); INR-International Normal Ratio 1.1; Mean Corpuscular HGB CONC 31.8 g/dL (32.0-36.0); Mean Corpuscular Hemoglobin 28.7 pg (27.0-31.0); Mean Corpuscular Volume 90.5 fL (78.0-98.0); Mean Platelet Volume 7.7 fL (7.4-10.4); PTT 34.9 SEC (22.9-36.1); Platelet Count 154 thou/uL (130-400); Prothrombin Time 13.8 SEC (12.0-14.7); RBC Distribution Width 16.5 % (11.5-14.5); Red Blood Cell (RBC) Count 4.12 mill/uL (4.70-6.10); White Blood Cell (WBC) Count 8.6 thou/uL (4.8-10.8)
[2019-08-13 06:34] LABS: Anion Gap 11 mmol/L (10-20); BUN (Urea Nitrogen) 15 mg/dL (8.4-25.7); Calc. Creatinine Clearance 88 mL/min (70-130); Calcium 8.4 mg/dL (7.8-10.44); Carbon Dioxide 22 mmol/L (23-31); Chloride 110 mmol/L (98-107); Estimated GFR-MDRD 87; Glucose 93 mg/dL (83-110); Potassium 4.2 mmol/L (3.5-5.1); Sodium 139 mmol/L (136-145)
--- NOTE | 2019-08-13 09:03 | PDOC.HOSPP ---
- Subjective Subjective: Doing well. Eating well. Occ SANCHEZ. - Objective Vital Signs & Weight: Vital Signs (12 hours) Temp Pulse Resp BP Pulse Ox 08/13/19 07:53 98.6 F 78 16 125/75 95 08/13/19 06:45 75 16 96 08/13/19 04:27 97.8 F 75 16 147/78 H 96 08/12/19 23:54 97.6 F 78 16 146/76 H 96 08/12/19 22:43 80 16 97 Weight Admit Weight 203 lb Weight 196 lb 12.8 oz Most Recent Monitor Data Heart Rate from ECG 89 NIBP 113/79 NIBP BP-Mean 90 Respiration from ECG 16 SpO2 100 I&O: 08/12/19 08/13/19 08/14/19 06:59 06:59 06:59 Intake Total 1022 1100 Balance 1022 1100 Result Diagrams: 08/13/19 05:48 08/13/19 05:48 Additional Labs: Accuchecks 08/13/19 08/13/19 05:46 00:18 POC Glucose 100 99 Hospitalist ROS - Medication Medications: Active Medications Generic Name Dose Route Start Last Admin Trade Name Freq PRN Reason Stop Dose Admin Acetaminophen 650 mg 08/05/19 11:29 08/08/19 17:18 Tylenol [place] 650 mg Q4H PRN Administration Headache/Fever/Mild Pain (1-3) Acetaminophen 650 mg 08/05/19 11:29 08/12/19 21:37 Tylenol PO 650 mg Q4H PRN Administration Headache/Fever/Mild Pain (1-3) Albuterol Sulfate 1.25 mg 08/05/19 14:30 08/13/19 06:45 Albuterol Sulfate NEB 1.25 mg [id number] MARIA VICTORIA Administration Atorvastatin Calcium 40 mg 08/05/19 21:00 08/12/19 20:25 Lipitor PO 40 mg HS MARIA VICTORIA Administration Citalopram Hydrobromide 40 mg 08/05/19 21:00 08/12/19 20:25 Celexa PO 40 mg HS MARIA VICTORIA Administration Enoxaparin Sodium 80 mg 08/10/19 09:00 08/12/19 20:25 Lovenox SC 80 mg 0900,2100 MARIA VICTORIA Administration Finasteride 5 mg 08/05/19 21:00 08/12/19 20:25 Proscar PO 5 mg HS MARIA VICTORIA Administration Sodium Chloride 1,000 mls @ 80 mls/hr 08/05/19 11:30 08/12/19 22:00 Normal Saline 0.9% IV Not Given .[id number] MARIA VICTORIA Meropenem 2 gm/ Miscellaneous 100 mls @ 100 mls/hr 08/12/19 21:00 08/13/19 04 :19 Medication 1 each/ Sodium IVPB 100 mls Chloride 0500,1300,2100 MARIA VICTORIA Administration Insulin Human Lispro 0 units 08/05/19 11:29 08/06/19 06:09 Humalog SC 2 unit .MODERATE SLIDING SC PRN Administration Moderate Correctional Scale Labetalol HCl 10 mg 08/09/19 00:39 08/09/19 01:01 Normodyne SLOW IVP 10 mg Q30MIN PRN Administration SBP > 180 or DBP > 110 Memantine 5 mg 08/06/19 09:00 08/12/19 08:11 Namenda PO 5 mg DAILY MARIA VICTORIA Administration Pantoprazole Sodium 40 mg 08/06/19 09:00 08/12/19 08:13 Protonix PO 40 mg DAILY MARIA VICTORIA Administration Polyethylene Glycol 17 gm 08/06/19 09:00 08/12/19 08:13 Miralax PO Not Given DAILY MARIA VICTORIA Sodium Chloride 10 ml 08/12/19 21:00 08/12/19 21:29 Flush - Normal Saline IVF 10 ml Q12HR MARIA VICTORIA Administration Topiramate 50 mg 08/07/19 21:00 08/12/19 21:29 Topamax PO 50 mg BID MARIA VICTORIA Administration Warfarin Sodium 5 mg 08/11/19 17:00 08/12/19 17:44 Coumadin PO 5 mg 1700 MARIA VICTORIA Administration - Exam General Appearance: NAD, awake alert Heart: RRR, no murmur, no gallops, no rubs, normal peripheral pulses Respiratory: CTAB, no wheezes, no rales, no ronchi, normal chest expansion, no tachypnea, normal percussion Gastrointestinal: soft, non-tender, non-distended, normal bowel sounds, no palpable masses, no hepatomegaly, no splenomegaly, no bruit Extremities: no cyanosis, no clubbing, no edema Psychiatric: not oriented Psychiatric - other findings: Pleasant. Conversant. Hosp A/P (1) Pneumococcal meningitis Code(s): G00.1 - PNEUMOCOCCAL MENINGITIS Status: Acute (2) Bacteremia due to Streptococcus pneumoniae Code(s): R78.81 - BACTEREMIA Status: Acute (3) Acute metabolic encephalopathy Code(s): G93.41 - METABOLIC ENCEPHALOPATHY Status: Acute (4) Seizure Code(s): R56.9 - UNSPECIFIED CONVULSIONS Status: Acute (5) Acute respiratory failure with hypoxia Code(s): J96.01 - ACUTE RESPIRATORY FAILURE WITH HYPOXIA Status: Resolved (6) Atrial fibrillation Code(s): I48.91 - UNSPECIFIED ATRIAL FIBRILLATION Status: Chronic (7) CAD (coronary artery disease) Code(s): I25.10 - ATHSCL HEART DISEASE OF [place] CORONARY ARTERY W/O ANG PCTRS Status: Chronic Qualifiers: Coronary Disease-Associated Artery/Lesion type: [place] artery [place] vs. transplanted heart: [place] heart Associated angina: without angina Qualified Code(s): I25.10 - Atherosclerotic heart disease of [place] coronary artery without angina pectoris (8) Chronic anticoagulation Code(s): Z79.01 - FOREST SCIENCE PROFESSOR (CURRENT) USE OF ANTICOAGULANTS Status: Chronic (9) H/O aortic valve replacement Code(s): Z95.2 - PRESENCE OF PROSTHETIC HEART VALVE Status: Chronic (10) Hypertension Code(s): I10 - ESSENTIAL (PRIMARY) HYPERTENSION Status: Chronic Qualifiers: Hypertension type: essential hypertension Qualified Code(s): I10 - Essential (primary) hypertension (11) Dysphagia Code(s): R13.10 - DYSPHAGIA, UNSPECIFIED Status: Acute - Plan Continue Merem for three weeks. INR still low since resuming the coumadin. CM consult May be a good swing bed patient. Needs IV abx and rehab. PICC placed. Tylenol for SANCHEZ
[2019-08-13] MEDS: Enoxaparin Sodium 80 MG/0.8 ML SYRINGE SC SCH (09:26)
[2019-08-13] MEDS: Polyethylene Glycol 3350 17 GM Packet PO SCH (09:26)
[2019-08-13] MEDS: Topiramate 25 MG TAB PO SCH (09:45)
[2019-08-13 16:33] VITALS: BP 134/77; TEMP 98.4
--- NOTE | 2019-08-14 14:55 | DIS ---
DATE OF ADMISSION: 08/05/2019 DATE OF DISCHARGE: 08/13/2019 DISCHARGE DIAGNOSES: 1. Pneumococcal meningitis. 2. Streptococcus pneumoniae bacteremia. 3. Acute metabolic encephalopathy. 4. Seizure. 5. Acute hypoxic respiratory failure. 6. Atrial fibrillation. 7. Coronary artery disease. 8. Chronic anticoagulation. 9. History of aortic valve replacement. 10. Hypertension. 11. Dysphagia. HISTORY OF PRESENT ILLNESS: This patient is an 79-year-old male, who presented to the emergency department after having had a seizure. With relation to that, the patient had airway protection issues and respiratory failure requiring intubation. He had an initial CT scan of the brain, which was unremarkable. Chest x-ray unremarkable. CT chest, abdomen, and pelvis showing no specific pathology. HOSPITAL COURSE: The patient was admitted to the hospital in the ICU followed by Pulmonary/Critical Care, where he was able to extubate. He had persistent encephalopathy, however, blood cultures did grow Strep pneumoniae and the patient was initially febrile. He remained on appropriate antibiosis for coverage of the bacteremia with the Strep pneumoniae. However, he continued to be fairly encephalopathic. Followup chest x-rays failed to specifically show any pneumonia associated with the Strep pneumoniae. Neurology was consulted and ultimately recommended MRI of the brain. Once the patient was able to get that accomplished, there were findings consistent with purulent material in the dependent area of the ventricles concerning for a pneumococcal infection and the patient had recurrence of significant fevers. At that time, a dose of vancomycin was added and ID was consulted. The recommendation was for change to meropenem given his cephalexin allergy. He was started on meropenem and the following morning, he had a lumbar puncture, the findings of which were very consistent with [employer]ER infection. By the following day, the patient remained a bit obtunded and was transferred back to a monitored unit. However, within 48 hours of starting the meropenem, the patient became fully awake. His encephalopathy appeared to essentially completely resolve and he was able to converse and eat and drink adequately. The patient then had a PICC line placed for a prolonged course of IV antibiotics under the recommendation of Dr. Herzog. He recommended a total of 21 days of the meropenem. Once the patient was felt to be stabilized and appropriate for discharge, case management was consulted to assist in securing appropriate disposition and he was accepted to swing bed at [facility]. On the day of discharge, temperature 98.4, pulse 80, respirations 16, O2 saturation 98% on room air, and BP 134/77. He was awake, alert, pleasant, and cooperative. Heart was regular rate and rhythm. Lungs were clear. Abdomen was benign. Extremities, no edema. DISPOSITION: The patient is discharged to the swing bed at [facility]. ACTIVITY: He will have activity as tolerated. DIET: Heart healthy diet. He will have OT, PT, and PICC line care. MEDICINES: Will include, 1. Tylenol p.r.n. 2. Atorvastatin 40 mg at bedtime. 3. Dulcolax p.r.n. 4. Lovenox 80 mg subcutaneous b.i.d. until he is therapeutic on Coumadin. 5. Namenda 5 mg daily. 6. Meropenem 2 g IV t.i.d. 7. Pantoprazole 40 mg daily. 8. Senokot S p.r.n. 9. Topiramate 50 mg b.i.d. 10. Citalopram 40 mg daily. 11. Warfarin 5 mg daily. 12. Torsemide 1 p.o. at bedtime. 13. Finasteride 5 mg at bedtime. 14. Simethicone p.r.n. 15. Pantoprazole 20 mg daily. 16. Alprazolam 0.25 mg t.i.d. p.r.n. FOLLOWUP: He will follow up with [facility] in [place], Dr. Cole Herzog, and Dr. Donaldo Wells, and he can return to the hospital at anytime should he have the need to do so. Total time in discharge activities was 40 minutes. Job ID: [id number]
== END 2019-08-13 16:46 | disposition critical access hospital (66) | DRG 871 ==
LOC: ERS 09:04 → CCU 14:26 → SJJU 08-07 20:08 → 2NO 08-09 20:32 → SJJU 08-12 11:09
PROVIDERS: ADMIT Internal Medicine; ATTEND Internal Medicine
PROC: 0BH17EZ Insertion of Endotracheal Airway into Trachea, Via Natural or Artificial Opening (ICD-10-PCS; 2019-08-05)
PROC: 5A1935Z Respiratory Ventilation, Less than 24 Consecutive Hours (ICD-10-PCS; 2019-08-05)
PROC: 009U3ZX Drainage of Spinal Canal, Percutaneous Approach, Diagnostic (ICD-10-PCS; principal; 2019-08-09)
PROC: 02HV33Z Insertion of Infusion Device into Superior Vena Cava, Percutaneous Approach (ICD-10-PCS; 2019-08-12)
PROC: B548ZZA Ultrasonography of Superior Vena Cava, Guidance (ICD-10-PCS; 2019-08-12)
DX: A41.9 Sepsis, unspecified organism (principal); G00.1 Pneumococcal meningitis; G93.41 Metabolic encephalopathy; J96.01 Acute respiratory failure with hypoxia; J15.3 Pneumonia due to streptococcus, group B; B95.7 Other staphylococcus as the cause of diseases classified elsewhere; I48.91 Unspecified atrial fibrillation; I25.10 Atherosclerotic heart disease of native coronary artery without angina pectoris; R13.10 Dysphagia, unspecified; G40.909 Epilepsy, unspecified, not intractable, without status epilepticus; E78.5 Hyperlipidemia, unspecified; Z66 Do not resuscitate; I12.9 Hypertensive chronic kidney disease with stage 1 through stage 4 chronic kidney disease, or unspecified chronic kidney disease; N18.9 Chronic kidney disease, unspecified; F03.90 Unspecified dementia, unspecified severity, without behavioral disturbance, psychotic disturbance, mood disturbance, and anxiety; N40.0 Benign prostatic hyperplasia without lower urinary tract symptoms; Z96.651 Presence of right artificial knee joint; E66.9 Obesity, unspecified; Z68.28 Body mass index [BMI] 28.0-28.9, adult; Z98.890 Other specified postprocedural states; Z88.1 Allergy status to other antibiotic agents; Z86.718 Personal history of other venous thrombosis and embolism; Z88.5 Allergy status to narcotic agent; Z88.8 Allergy status to other drugs, medicaments and biological substances; Z79.01 Long term (current) use of anticoagulants; Z95.2 Presence of prosthetic heart valve
CPT/HCPCS: 31500; 36415; 36416; 36569; 51702; 62270; 70450; 70551; 71045; 71260; 74177; 80048; 80053; 80202; 80306; 80307; 81003; 82140; 82550; 82805; 82945; 83605; 83690; 83880; 84157; 84443; 84484; 85025; 85060; 85610; 85730; 87040; 87070; 87077; 87086; 87149; 87186; 87205; 87804; 89051; 93005; 94002; 94003; 94640; 96360; 96361; 96365; 96366; 96367; 96375; C1751; J0131; J1100; J1650; J1956; J2060; J2185; J2270; J2543; J2704; J3010; J3370; J3430; J3490; J7050; Q9967

== ENCOUNTER 2019-10-09 16:09 | Emergency (ER) | payer MEDICARE, OTHER ==
--- NOTE | 2019-10-09 18:10 | CT ---
Exam: CT brain PROVIDED CLINICAL HISTORY: Fall COMPARISON: 08/05/2019 FINDINGS: The ventricular system is normal in size and morphology. No evidence for intracranial hemorrhage or mass effect. Chronic microvascular ischemic changes are again seen involving the periventricular white matter. There is partial opacification of the right mastoid air cells. This is increased slight ly since the prior. The extracranial soft tissues and osseous structures demonstrate an otherwise unremarkable CT appearance. IMPRESSION: No evidence for intracranial hemorrhage or mass effect.
== END 2019-10-09 19:58 ==
LOC: ERS 16:09
DX: S09.90XA Unspecified injury of head, initial encounter (principal); I10 Essential (primary) hypertension; E78.5 Hyperlipidemia, unspecified; Z86.718 Personal history of other venous thrombosis and embolism; G47.30 Sleep apnea, unspecified; K21.9 Gastro-esophageal reflux disease without esophagitis; F41.9 Anxiety disorder, unspecified; F03.90 Unspecified dementia, unspecified severity, without behavioral disturbance, psychotic disturbance, mood disturbance, and anxiety; Z79.899 Other long term (current) drug therapy; Z79.01 Long term (current) use of anticoagulants; W05.0XXA Fall from non-moving wheelchair, initial encounter; Y92.129 Unspecified place in nursing home as the place of occurrence of the external cause
CPT/HCPCS: 70450